=== PATIENT | male | born 1965 | race Caucasian/White ===

== ENCOUNTER 2017-02-24 21:59 | Emergency (ER) | payer OTHER, SELFPAY ==
[2017-02-24] MEDS ORDERED: BABY ASPIRIN 81 MG CHEW PO ONE (22:16)
--- NOTE | 2017-02-24 22:23 | ERPHSYRPT ---
- History of Present Illness Time Seen by Provider: 02/24/17 22:15 Source: patient Exam Limitations: no limitations Patient Subjective Stated Complaint: Pt sts pain in left arm since Friday night. Sts pain is worse with certain positions. Sts that it shoots up between his shoulder blades at times. Denies chest pain. Denies shortness of breath. Sts that sometimes he experiences tingling in the hand when the pain occurs. Sts pain started after working on a heavy garage door Friday. Triage Nursing Assessment: Pt alert, oriented, answers all questions appropriately. Skin pink, warm, dry. Resps non-labored. Pt grimaces with pain upon movement of left arm. clinical research monitor at triage sinus rhythm. Physician History: FOR THE PAST 3 DAYS PT HAS HAD LEFT SHOULDER PAIN RADIATING TO THE MID BACK AND LEFT HAND WORSE WITH UPRIGHT POSITION. PT ALSO C/O A COUGH FOR YEARS. PT DENIES CHEST PAIN, FEVER, NAUSEA, DIAPHORESIS, ABDOMINAL PAIN. Allergies/Adverse Reactions: No Known Drug Allergies Allergy (Unverified 03/17/15 09:58) Hx Tetanus, Diphtheria Vaccination/Date Given: Yes (UNKNOWN) Hx Influenza Vaccination/Date Given: No Hx Pneumococcal Vaccination/Date Given: No Immunizations Up to Date: Yes - Review of Systems Constitutional: No Fever Respiratory: Cough Cardiac: No Chest Pain Abdominal/Gastrointestinal: No Abdominal Pain, No Nausea Musculoskeletal: Back Pain (MID BACK PAIN), Joint Pain (LEFT SHOULDER PAIN) Endocrine: No Excessive Sweating All Other Systems: Reviewed and Negative - Past Medical History Pertinent Past Medical History: No - Past Surgical History Past Surgical History: No - Social History Smoking Status: Current every day smoker How long have you smoked: 35 Exposure to second hand smoke: No Drug Use: none Patient Lives Alone: No - Nursing Vital Signs Nursing Vital Signs: Initial Vital Signs Temperature 97.7 F 02/24/17 22:08 Pulse Rate 84 02/24/17 22:08 Respiratory Rate 20 02/24/17 22:08 Blood Pressure 136/100 02/24/17 22:08 O2 Sat by Pulse Oximetry 99 02/24/17 22:08 Pain Scale Pain Intensity 4 - Physical Exam General Appearance: alert Eye Exam: PERRL/EOMI Ears, Nose, Throat Exam: TMs normal, pharynx normal, moist mucous membranes Neck Exam: normal inspection Respiratory Exam: lungs clear Cardiovascular Exam: normal heart sounds Gastrointestinal/Abdomen Exam: soft, normal bowel sounds Back Exam: normal range of motion Extremity Exam: normal inspection, other (LEFT SHOULDER NON-TENDER BUT MILD PAIN WITH ABDUCTION.), No pedal edema Neurologic Exam: alert, cooperative Skin Exam: warm, dry SpO2 Interpretation: normal SpO2: 99 Oxygen Delivery: Room Air - Course Nursing assessment & vital signs reviewed: Yes EKG Interpreted by Me: RATE (72), Sinus Rhythm, Left Metcalfe Deviation, NORMAL INTERVALS - Radiology Exams Chest X-ray Interpretation: Interpreted by me, No Pneumonia Left Shoulder X-ray Interpretation: Interpreted by me, No Fracture Ordered Tests: Active Orders 24 hr Category Date Time Status Personal Lines Underwriter STAT Care 02/24/17 22:17 Active EKG-ER Only STAT Care 02/24/17 22:16 Active IV Insertion STAT Care 02/24/17 22:16 Active Oxygen-ED Only NASAL CANNULA 2 lpm Care 02/24/17 22:16 Active Pulse Oximetry (ED) STAT Care 02/24/17 22:16 Active CHEST 2 VIEWS (PA AND LAT) Stat Exams 02/24/17 22:16 Taken SHOULDER Stat Exams 02/24/17 Taken AMYLASE Stat Lab 02/24/17 22:33 Completed CBC W DIFF Stat Lab 02/24/17 22:33 Completed CMP Stat Lab 02/24/17 22:33 Completed LIPASE Stat Lab 02/24/17 22:33 Completed MAGNESIUM Stat Lab 02/24/17 22:33 Completed Manual Differential NC Stat Lab 02/24/17 22:33 Completed NT PRO BNP Stat Lab 02/24/17 22:33 Completed TROPONIN Q3H Lab 02/24/17 22:33 Completed TROPONIN Q3H Lab 02/25/17 01:30 Ordered TROPONIN Q3H Lab 02/25/17 04:30 Ordered TROPONIN Q3H Lab 02/25/17 07:30 Ordered TROPONIN Q3H Lab 02/25/17 10:30 Ordered Medication Summary Generic Name Dose Route Start Last Admin Trade Name Freq PRN Reason Stop Dose Admin Sodium Chloride 1,000 mls @ 100 mls/hr 02/24/17 22:30 02/24/17 22:45 Sodium Chloride 0.9% 1000 Ml IV 03/26/17 22:29 100 mls/hr .Q10H ESTRELLA Administration Discontinued Medications Generic Name Dose Route Start Last Admin Trade Name Freq PRN Reason Stop Dose Admin Aspirin 324 mg 02/24/17 22:16 02/24/17 22:44 Baby Aspirin 81 Mg Chew PO 02/24/17 22:17 324 mg STAT ONE Administration Aspirin Confirm 02/24/17 22:42 Baby Aspirin 81 Mg Chew Administered 02/24/17 22:43 Dose 324 mg .ROUTE .STK-MED ONE Lab/Rad Data: Laboratory Result Diagrams 02/24/17 22:33 02/24/17 22:33 Laboratory Results 02/24/17 02/24/17 02/24/17 Range/Units 22:33 22:33 22:33 WBC 8.3 (4.0-10.5) K/mm3 RBC 4.59 (4.1-5.6) M/mm3 Hgb 15.5 (12.5-18.0) gm/dl Hct 46.0 (42-50) % MCV 100.2 H (78-100) fl MCH 33.8 H (26-32) pg MCHC 33.7 (32-36) g/dl RDW 12.4 (11.5-14.0) % Plt Count 131 L (150-450) K/mm3 MPV 11.1 H (6-9.5) fl Sodium 135 L (136-145) mEq/L Potassium 3.9 (3.5-5.1) mEq/L Chloride 100 (98-107) mEq/L Carbon Dioxide 24.8 (21-32) mEq/L Anion Gap 13.6 (5-15) MEQ/L BUN 16 (9-20) mg/dL Creatinine 0.64 (0.55-1.30) mg/dl Estimated GFR > 60 ML/MIN Glucose 103 (70-110) MG/DL Calcium 9.0 (8.5-10.1) mg/dL Magnesium 2.0 (1.8-2.4) mg/dL Total Bilirubin 0.90 (0.2-1.0) mg/dL AST 45 H (15-37) U/L ALT 95 H (12-78) U/L Alkaline Phosphatase 72 (46-116) U/L Troponin I < 0.017 (0.000-0.056) ng/ml NT-Pro-B Natriuret Pep 57 (0-125) pg/ml Serum Total Protein 7.9 (6.4-8.2) gm/dL Albumin 3.8 (3.4-5.0) g/dL Amylase 55 (25-115) U/L Lipase 321 (73-393) U/L - Departure Time of Disposition: 23:51 Departure Disposition: Home Clinical Impression: BURSITIS OF LEFT SHOULDER Condition: Stable Critical Care Time: No Referrals: DOCTOR,NO FAMILY [Primary Care Provider] - Instructions: Bursitis Additional Instructions: FOLLOW UP WITH PRIVATE DOCTOR TOMORROW. WEAR LEFT ARM SLING FOR COMFORT. Prescriptions: Naproxen [Naprosyn] 500 mg PO [id number] PRN #20 tablet PRN Reason: Pain
[2017-02-24] MEDS ORDERED: Sodium Chloride 0.9% 1000 ML 1,000 ML IV SCH (22:30)
[2017-02-24 22:41] LABS: Mean Cell Volume 100.2 fl (78-100); Mean Corpuscular Hemoglobin 33.8 pg (26-32); Mean Platelet Volume 11.1 fl (6-9.5); Platelet Count 131 K/mm3 (150-450); Red Blood Count 4.59 M/mm3 (4.1-5.6); Red Cell Distribution Width 12.4 % (11.5-14.0); White Blood Count 8.3 K/mm3 (4.0-10.5)
[2017-02-24] MEDS ORDERED: BABY ASPIRIN 81 MG CHEW ONE (22:42)
[2017-02-24] MEDS ORDERED: Sodium Chloride 0.9% 1000 ML 1,000 ML ONE (22:42)
[2017-02-24 23:08] LABS: ALBUMIN 3.8 g/dL (3.4-5.0); ALKALINE PHOSPHATASE 72 U/L (46-116); ANION GAP 13.6 MEQ/L (5-15); BLOOD UREA NITROGEN 16 mg/dL (9-20); CHLORIDE 100 mEq/L (98-107); Carbon Dioxide 24.8 mEq/L (21-32); Glucose 103 MG/DL (70-110); LIPASE 321 U/L (73-393); Potassium 3.9 mEq/L (3.5-5.1); SGOT/AST 45 U/L (15-37); SGPT/ALT 95 U/L (12-78); SODIUM 135 mEq/L (136-145); Total Protein 7.9 gm/dL (6.4-8.2)
[2017-02-24] MEDS ORDERED: NORCO 5/325 MG PO ONE (23:52)
[2017-02-25] MEDS ORDERED: NORCO 5/325 MG ONE
[2017-02-25 00:17] VITALS: BP 150/75; PULSE 78; O2SAT 98
[2017-02-25 01:34] LABS: Eosinophil 1 % (0.00-3.0); Platelet Estimate NORMAL (NORMAL); Total Cells Counted 100
--- NOTE | 2017-02-25 08:49 | XRAY ---
Indication: Pain. Comparison: None 3 views of the left shoulder demonstrates mild AC degenerative arthropathy. No other bony, articular, or soft tissue abnormalities.
--- NOTE | 2017-02-25 08:51 | XRAY ---
Indication: Chest pain. Comparison: March 17, 2015. PA/lateral chest again hyperinflated and clear. Heart is not enlarged. Vascularity normal. Bony thorax intact. Impression: Stable nonacute hyperinflated chest.
== END 2017-02-25 00:18 | disposition home or self-care (01) ==
LOC: ED 21:59
DX: M75.52 Bursitis of left shoulder (principal)
CPT/HCPCS: 36000; 36415; 71020; 73030; 80053; 82150; 83690; 83735; 83880; 84484; 85025; 93005; 93041; 96360; 99283; 99284; A9270-GY

== ENCOUNTER 2018-02-19 09:56 | Emergency (ER) | payer OTHER ==
[2018-02-19 10:17] VITALS: BP 156/89; PULSE 73; O2SAT 97
--- NOTE | 2018-02-19 10:18 | ERPHSYRPT ---
- History of Present Illness Time Seen by Provider: 02/19/18 10:05 Source: patient, family Exam Limitations: no limitations Physician History: 52 y/o white male presents with 2 day h/o right rib pain after a severe coughing spell. pt has broken right ribs in the past and it feels like that. pt states he drank 4 beers this morning to deaden the pain. he drink beer daily. he is not on any medication and is not allergic to medication Timing/Duration: day(s) (2) Allergies/Adverse Reactions: No Known Drug Allergies Allergy (Unverified 02/19/18 10:17) Hx Tetanus, Diphtheria Vaccination/Date Given: Yes (UNKNOWN) Hx Influenza Vaccination/Date Given: No Hx Pneumococcal Vaccination/Date Given: No - Past Medical History Pertinent Past Medical History: No - Past Surgical History Past Surgical History: No - Social History Smoking Status: Current every day smoker How long have you smoked: 35 Exposure to second hand smoke: No Drug Use: none Patient Lives Alone: No - Nursing Vital Signs Nursing Vital Signs: Initial Vital Signs Temperature 97.7 F 02/19/18 10:10 Pulse Rate 73 02/19/18 10:10 Respiratory Rate 18 02/19/18 10:10 Blood Pressure 156/89 02/19/18 10:10 O2 Sat by Pulse Oximetry 97 02/19/18 10:10 Pain Scale Pain Intensity 7 - Course Nursing assessment & vital signs reviewed: Yes Ordered Tests: Active Orders 24 hr Category Date Time Status CHEST 2 VIEWS (PA AND LAT) Stat Exams 02/19/18 10:18 Completed Medication Summary Discontinued Medications Generic Name Dose Route Start Last Admin Trade Name [place] PRN Reason Stop Dose Admin Lorazepam 1 mg 02/19/18 10:23 02/19/18 10:41 Ativan 2 Mg/1 Ml Vial IM 02/19/18 10:24 1 mg STAT ONE Administration Lorazepam Confirm 02/19/18 10:26 Ativan 2 Mg/1 Ml Vial Administered 02/19/18 10:27 Dose 2 mg .ROUTE .STK-MED ONE Methylprednisolone Sodium Succinate 125 mg 02/19/18 10:20 02/19/18 10:41 Solu-Medrol 125 Mg IM 02/19/18 10:21 125 mg STAT ONE Administration Methylprednisolone Sodium Succinate Confirm 02/19/18 10:26 Solu-Medrol 125 Mg Administered 02/19/18 10:27 Dose 125 mg .ROUTE .STK-MED ONE Lab/Rad Data: cxr-no acute process; no fx ribs - Progress Progress: improved Air Movement: good Progress Note: 02/19/18 10:53 pt feeling good enough to be outside and smoking. Blood Culture(s) Obtained: No Antibiotics given: No Counseled pt/family regarding: diagnosis, need for follow-up, rad results - Departure Time of Disposition: 10:54 Departure Disposition: Home Clinical Impression: Rib pain on right side Condition: Stable Critical Care Time: No Referrals: DOCTOR,NO FAMILY [Primary Care Provider] - Additional Instructions: follow up with primary doctor for persistent pain. add tylenol for pain. do not consume alcohol while taking your medications Prescriptions: Diazepam [Valium] 2 mg PO Q12H PRN PRN #6 tablet MDD 2 PRN Reason: Muscle Spasms Prednisone 10 mg [Deltasone 10 mg] 10 mg PO BID #6 tablet
[2018-02-19] MEDS ORDERED: solu-MEDROL 125 MG IM ONE (10:20)
[2018-02-19] MEDS ORDERED: Ativan 2 MG/1 ML VIAL IM ONE (10:23)
[2018-02-19] MEDS ORDERED: solu-MEDROL 125 MG ONE (10:26)
[2018-02-19] MEDS ORDERED: Ativan 2 MG/1 ML VIAL ONE (10:26)
--- NOTE | 2018-02-19 10:48 | XRAY ---
Indication: Right-sided pain, cough, and short of breath 3-4 days. Comparison: February 24, 2017. PA/lateral chest again demonstrates normal heart and lungs. Bony thorax intact. No new/acute findings.
== END 2018-02-19 11:06 | disposition home or self-care (01) ==
LOC: ED 09:56
DX: R07.81 Pleurodynia (principal)
CPT/HCPCS: 71046; 96372; 99283; J2060; J2930

== ENCOUNTER 2021-03-19 16:09 | Observation (INO) | payer OTHER ==
--- NOTE | 2021-03-19 18:29 | PCM.HP.ADD ---
Addendum to History & Physical - History & Physical Addendum Addendum to History & Physical: This certifies that the History & Physical in the electronic chart reflects the current health status of the patient. If there are changes in the H&P these changes/exceptions are listed as follows.
[2021-03-19 18:45] LABS: Absolute Neutrophil Ct (ANC) 3.75 (1.4-6.9); BASOPHIL % 1.1 % (0.0-0.4); Basophil (Absolute #) 0.08 (0-0.4); Eosinophil % 2.3 % (0.00-5.0); Eosinophil (Absolute #) 0.16 (0-0.5); Hematocrit 28.4 % (42-50); Lymphocyte (Absolute #) 1.83 (1.0-4.6); Lymphocytes % 26.3 % (24.0-44.0); Mean Corpuscular Hgb Concent. 31.7 g/dl (32-36); Mean Platelet Volume 10.3 fl (7.5-11.0); Monocyte (Absolute #) 1.15 (0.0-1.3); Monocytes % 16.5 % (0.0-12.0); Neutrophil % 53.8 % (36.0-66.0); Platelet Count 102 K/mm3 (150-450); Red Blood Count 2.73 M/mm3 (4.1-5.6); Red Cell Distribution Width 13.8 % (11.5-14.0)
[2021-03-19 19:05] LABS: ALBUMIN 2.9 g/dL (3.5-5.0); ALKALINE PHOSPHATASE 112 U/L (38-126); ANION GAP 11.2 MEQ/L (5-15); BLOOD UREA NITROGEN 6 mg/dL (9-20); CHLORIDE 102 mmol/L (98-107); Calcium 8.1 mg/dL (8.4-10.2); Carbon Dioxide 23 mmol/L (22-30); Creatinine 1 0.65 mg/dL (0.66-1.25); EST GLOMERULAR FILTRATION RATE > 60.0 ML/MIN; Glucose 114 mg/dL (74-106); NT PRO BNP 296 pg/mL (0-900); SGOT/AST 55 U/L (17-59); SGPT/ALT 27 U/L (0-50); SODIUM 134 mmol/L (137-145); Total Protein 6.5 g/dL (6.3-8.2)
[2021-03-19 19:09] LABS: Potassium 2.7 mmol/L (3.5-5.1)
[2021-03-19] MEDS ORDERED: ROCEPHIN 2 Gm-D5w 50ML BAG** 2 G/50 ML IVPB IV ONE (19:36)
[2021-03-19] MEDS: Sodium Chloride 0.9% 1000 ML 1,000 ML IV SCH (19:40)
[2021-03-19] MEDS: Neurontin 100 MG PO SCH (21:16)
[2021-03-19] MEDS: POTASSIUM CHLORIDE 20 mEq IN WATER 100ML 20 MEQ/100 ML BAG IV SCH ×2 (21:16→22:56)
[2021-03-20 00:56] LABS: Appearance CLEAR (CLEAR); Bilirubin NEGATIVE (NEGATIVE); Blood NEGATIVE Ery/ul (0-5); Glucose NEGATIVE (NEGATIVE); Ketones NEGATIVE (NEGATIVE); Leukocyte Esterase NEGATIVE (NEGATIVE); Nitrite NEGATIVE (NEGATIVE); Protein,Urine Dip NEGATIVE (Negative); Specific Gravity 1.013 (1.005-1.025); Urobilinogen 4 mg/dL (0-1); WBC 0-2 /HPF (0-5)
[2021-03-20 05:40] LABS: Hematocrit 27.3 % (42-50); Hemoglobin 8.5 gm/dl (12.5-18.0); Mean Corpuscular Hemoglobin 32.7 pg (26-32); Mean Corpuscular Hgb Concent. 31.1 g/dl (32-36); Mean Platelet Volume 11.3 fl (7.5-11.0); Platelet Count 87 K/mm3 (150-450); Red Cell Distribution Width 13.8 % (11.5-14.0); White Blood Count 6.3 K/mm3 (4.0-10.5)
[2021-03-20 06:02] LABS: ALBUMIN 2.3 g/dL (3.5-5.0); ALKALINE PHOSPHATASE 104 U/L (38-126); ANION GAP 6.1 MEQ/L (5-15); BLOOD UREA NITROGEN 6 mg/dL (9-20); CHLORIDE 104 mmol/L (98-107); Carbon Dioxide 27 mmol/L (22-30); Creatinine 1 0.61 mg/dL (0.66-1.25); EST GLOMERULAR FILTRATION RATE > 60.0 ML/MIN; Glucose 98 mg/dL (74-106); MAGNESIUM 1.9 mg/dL (1.6-2.3); Potassium 3.3 mmol/L (3.5-5.1); SGOT/AST 47 U/L (17-59); SGPT/ALT 23 U/L (0-50); SODIUM 134 mmol/L (137-145); Total Protein 5.6 g/dL (6.3-8.2)
--- NOTE | 2021-03-20 08:03 | PCM.NOTE ---
Date and Time: 03/20/21 0758 Subjective Assessment: still swollen left thigh. labs and ultrasound reviewed. - Review of Systems Constitutional: No Fever, No Chills Eyes: No Symptoms Ears, Nose, & Throat: No Symptoms Respiratory: Short Of Breath, No Cough Cardiac: No Chest Pain, No Edema, No Syncope Abdominal/Gastrointestinal: No Abdominal Pain, No Nausea, No Vomiting, No Diarrhea Genitourinary Symptoms: No Dysuria Musculoskeletal: Other (swollen left thigh), No Back Pain, No Neck Pain Skin: Cellulitis, No Rash Neurological: No Dizziness, No Focal Weakness, No Sensory Changes Psychological: No Symptoms Endocrine: No Symptoms Hematologic/Lymphatic: No Symptoms Immunological/Allergic: No Symptoms Objective Exam General Appearance: no apparent distress, alert Neurologic Exam: alert, oriented x 3, cooperative, normal mood/affect, nml cerebellar function, sensation nml, No motor deficits Skin Exam: normal color, warm, dry Eye Exam: PERRL, EOMI, eyes nml inspection Ears, Nose, Throat Exam: normal ENT inspection, pharynx normal, moist mucous membranes Neck Exam: normal inspection, non-tender, supple, full range of motion Respiratory Exam: normal breath sounds, lungs clear, No respiratory distress Cardiovascular Exam: regular rate/rhythm, normal heart sounds Gastrointestinal/Abdomen Exam: soft, No tenderness, No mass Extremity Exam: normal inspection, normal range of motion, inflammation, limited range of motion, swelling, tenderness (left thigh), No solo's sign Back Exam: normal inspection, normal range of motion, No CVA tenderness, No vertebral tenderness Male Genitalia Exam: deferred Rectal Exam: deferred OBJECTIVE DATA Vital Signs: Vital Signs - 24 hr Temp Pulse Resp BP Pulse Ox 03/20/21 04:00 98.4 F 78 16 103/50 97 03/20/21 00:00 98.6 F 84 18 112/55 98 03/19/21 19:34 85 16 110/58 96 03/19/21 19:25 96 03/19/21 18:41 85 16 110/58 96 Pain Assessment - Last Documented Pain Intensity 2 Intake and Output: Intake & Output 03/17/21 03/18/21 03/19/21 03/20/21 12:59 11:59 11:59 11:59 Intake Total 1079 Balance 1079 Weight 97.4 kg Lab Results: Lab Results-Last 24 Hours 03/19/21 03/19/21 03/19/21 Range/Units 16:30 18:30 18:40 WBC 7.0 (4.0-10.5) K/mm3 RBC 2.73 L (4.1-5.6) M/mm3 Hgb 9.0 L (12.5-18.0) gm/dl Hct 28.4 L (42-50) % MCV 104.0 H (78-100) fl MCH 33.0 H (26-32) pg MCHC 31.7 L (32-36) g/dl RDW 13.8 (11.5-14.0) % Plt Count 102 L (150-450) K/mm3 MPV 10.3 (7.5-11.0) fl Gran % 53.8 (36.0-66.0) % Eos # (Auto) 0.16 (0-0.5) Absolute Lymphs (auto) 1.83 (1.0-4.6) Absolute Monos (auto) 1.15 (0.0-1.3) Lymphocytes % 26.3 (24.0-44.0) % Monocytes % 16.5 H (0.0-12.0) % Eosinophils % 2.3 (0.00-5.0) % Basophils % 1.1 (0.0-0.4) % Absolute Granulocytes 3.75 (1.4-6.9) Basophils # 0.08 (0-0.4) D-Dimer (215-500) ng/mL Sodium 134 L (137-145) mmol/L Potassium 2.7 L* (3.5-5.1) mmol/L Chloride 102 (98-107) mmol/L Carbon Dioxide 23 (22-30) mmol/L Anion Gap 11.2 (5-15) MEQ/L BUN 6 L (9-20) mg/dL Creatinine 0.65 L (0.66-1.25) mg/dL Estimated GFR > 60.0 ML/MIN Glucose 114 H (74-106) mg/dL Calcium 8.1 L (8.4-10.2) mg/dL Magnesium (1.6-2.3) mg/dL Total Bilirubin 3.20 H (0.2-1.3) mg/dL AST 55 (17-59) U/L ALT 27 (0-50) U/L Alkaline Phosphatase 112 (38-126) U/L NT-Pro-B Natriuret Pep 296 (0-900) pg/mL Serum Total Protein 6.5 (6.3-8.2) g/dL Albumin 2.9 L (3.5-5.0) g/dL Urine Color (YELLOW) Urine Appearance (CLEAR) Urine pH (5-6) Ur Specific Wellman (1.005-1.025) Urine Protein (Negative) Urine Ketones (NEGATIVE) Urine Blood (0-5) Henry/ul Urine Nitrite (NEGATIVE) Urine Bilirubin (NEGATIVE) Urine Urobilinogen (0-1) mg/dL Ur Leukocyte Esterase (NEGATIVE) Urine WBC (Auto) (0-5) /HPF U Epithel Cells (Auto) (FEW) /HPF Urine Culture Reflexed (NO) Urine Glucose (NEGATIVE) mg/dL SARS-CoV-2 (PCR) NEGATIVE (NEGATIVE) 03/20/21 03/20/21 03/20/21 Range/Units 00:50 04:20 04:20 WBC 6.3 (4.0-10.5) K/mm3 RBC 2.60 L (4.1-5.6) M/mm3 Hgb 8.5 L (12.5-18.0) gm/dl Hct 27.3 L (42-50) % MCV 105.0 H (78-100) fl MCH 32.7 H (26-32) pg MCHC 31.1 L (32-36) g/dl RDW 13.8 (11.5-14.0) % Plt Count 87 L (150-450) K/mm3 MPV 11.3 H (7.5-11.0) fl Gran % (36.0-66.0) % Eos # (Auto) (0-0.5) Absolute Lymphs (auto) (1.0-4.6) Absolute Monos (auto) (0.0-1.3) Lymphocytes % (24.0-44.0) % Monocytes % (0.0-12.0) % Eosinophils % (0.00-5.0) % Basophils % (0.0-0.4) % Absolute Granulocytes (1.4-6.9) Basophils # (0-0.4) D-Dimer (215-500) ng/mL Sodium 134 L (137-145) mmol/L Potassium 3.3 L D (3.5-5.1) mmol/L Chloride 104 (98-107) mmol/L Carbon Dioxide 27 (22-30) mmol/L Anion Gap 6.1 (5-15) MEQ/L BUN 6 L (9-20) mg/dL Creatinine 0.61 L (0.66-1.25) mg/dL Estimated GFR > 60.0 ML/MIN Glucose 98 (74-106) mg/dL Calcium 8.0 L (8.4-10.2) mg/dL Magnesium 1.9 (1.6-2.3) mg/dL Total Bilirubin 1.80 H (0.2-1.3) mg/dL AST 47 (17-59) U/L ALT 23 (0-50) U/L Alkaline Phosphatase 104 (38-126) U/L NT-Pro-B Natriuret Pep (0-900) pg/mL Serum Total Protein 5.6 L (6.3-8.2) g/dL Albumin 2.3 L (3.5-5.0) g/dL Urine Color YELLOW (YELLOW) Urine Appearance CLEAR (CLEAR) Urine pH 6.0 (5-6) Ur Specific Wellman 1.013 (1.005-1.025) Urine Protein NEGATIVE (Negative) Urine Ketones NEGATIVE (NEGATIVE) Urine Blood NEGATIVE (0-5) Henry/ul Urine Nitrite NEGATIVE (NEGATIVE) Urine Bilirubin NEGATIVE (NEGATIVE) Urine Urobilinogen 4 (0-1) mg/dL Ur Leukocyte Esterase NEGATIVE (NEGATIVE) Urine WBC (Auto) 0-2 (0-5) /HPF U Epithel Cells (Auto) NONE (FEW) /HPF Urine Culture Reflexed NO (NO) Urine Glucose NEGATIVE (NEGATIVE) mg/dL SARS-CoV-2 (PCR) (NEGATIVE) 03/20/21 Range/Units 04:20 WBC (4.0-10.5) K/mm3 RBC (4.1-5.6) M/mm3 Hgb (12.5-18.0) gm/dl Hct (42-50) % MCV (78-100) fl MCH (26-32) pg MCHC (32-36) g/dl RDW (11.5-14.0) % Plt Count (150-450) K/mm3 MPV (7.5-11.0) fl Gran % (36.0-66.0) % Eos # (Auto) (0-0.5) Absolute Lymphs (auto) (1.0-4.6) Absolute Monos (auto) (0.0-1.3) Lymphocytes % (24.0-44.0) % Monocytes % (0.0-12.0) % Eosinophils % (0.00-5.0) % Basophils % (0.0-0.4) % Absolute Granulocytes (1.4-6.9) Basophils # (0-0.4) D-Dimer 4631 H* (215-500) ng/mL Sodium (137-145) mmol/L Potassium (3.5-5.1) mmol/L Chloride (98-107) mmol/L Carbon Dioxide (22-30) mmol/L Anion Gap (5-15) MEQ/L BUN (9-20) mg/dL Creatinine (0.66-1.25) mg/dL Estimated GFR ML/MIN Glucose (74-106) mg/dL Calcium (8.4-10.2) mg/dL Magnesium (1.6-2.3) mg/dL Total Bilirubin (0.2-1.3) mg/dL AST (17-59) U/L ALT (0-50) U/L Alkaline Phosphatase (38-126) U/L NT-Pro-B Natriuret Pep (0-900) pg/mL Serum Total Protein (6.3-8.2) g/dL Albumin (3.5-5.0) g/dL Urine Color (YELLOW) Urine Appearance (CLEAR) Urine pH (5-6) Ur Specific Wellman (1.005-1.025) Urine Protein (Negative) Urine Ketones (NEGATIVE) Urine Blood (0-5) Henry/ul Urine Nitrite (NEGATIVE) Urine Bilirubin (NEGATIVE) Urine Urobilinogen (0-1) mg/dL Ur Leukocyte Esterase (NEGATIVE) Urine WBC (Auto) (0-5) /HPF U Epithel Cells (Auto) (FEW) /HPF Urine Culture Reflexed (NO) Urine Glucose (NEGATIVE) mg/dL SARS-CoV-2 (PCR) (NEGATIVE) Radiology Exams: Radiology Procedures Category Date Time Status CHEST WITH CONTRAST [CT] Routine Exams 03/21/21 01:00 Ordered LOWER EXTREMITY W AND W/O [CT] Routine Exams 03/20/21 Taken LOWER EXTREMITY W AND W/O [CT] Routine Exams 03/20/21 Taken VENOUS BILATERAL EXTREMITY [US] Routine Exams 03/20/21 06:45 Ordered Assessment/Plan (1) Cellulitis and abscess of left lower extremity Current Visit: Yes Status: Acute Assessment & Plan: Chief Complaint Diagnosis CELLULITIS LEFT LEG Allergies Allergy/AdvReac Type Severity Reaction Status Date / Time No Known Drug Allergies Allergy Unverified 02/19/18 10:17 Vital Signs (Last 24 hours) Temp Pulse Resp BP Pulse Ox 03/20/21 04:00 98.4 F 78 16 103/50 97 03/20/21 00:00 98.6 F 84 18 112/55 98 03/19/21 19:34 85 16 110/58 96 03/19/21 19:25 96 03/19/21 18:41 85 16 110/58 96 Home Medications Medication Instructions Recorded Confirmed Last Taken Type Bumetanide 1 mg [Bumex 1 mg] 1 mg PO DAILY 03/19/21 03/19/21 03/19/21 History Gabapentin 100 mg [Neurontin 100 mg PO BID 03/19/21 03/19/21 03/15/21 History 100 MG] Levothyroxine Sodium [Euthyrox] 50 mcg PO DAILY 03/19/21 03/19/21 03/15/21 History Magnesium 250 mg PO EVENING MEAL 03/19/21 03/19/21 03/15/21 History Current Medications Generic Name Dose Route Start Last Admin Trade Name Karanq PRN Reason Stop Dose Admin Bumetanide 1 mg 03/20/21 10:00 Bumetanide 1 Mg Tablet PO 04/19/21 09:59 DAILY ESTRELLA Enoxaparin Sodium 40 mg 03/20/21 10:00 Enoxaparin Sodium 40 Mg/0.4 Ml Syringe SQ 04/19/21 09:59 DAILY ESTRELLA Gabapentin 100 mg 03/19/21 22:00 03/19/21 21:16 Gabapentin 100 Mg Capsule PO 04/18/21 21:59 100 mg BID ESTRELLA Administration Sodium Chloride 1,000 mls @ 50 mls/hr 03/19/21 18:15 03/19/21 19:40 Sodium Chloride 0.9% 1000 Ml IV 04/18/21 18:14 50 mls/hr .Q20H ESTERLLA Administration Ceftriaxone Sodium/Dextrose 2 g in 50 mls @ 100 mls/hr 03/20/21 22:00 Rocephin 2 Gm-D5w 50ml Bag IV 03/23/21 09:59 QPM ESTRELLA Levothyroxine Sodium 50 mcg 03/20/21 10:00 Levothyroxine Sodium 50 Mcg Tablet PO 04/19/21 09:59 DAILY ESTRELLA Magnesium Oxide 200 mg 03/20/21 18:00 Magnesium Oxide 400 Mg Tablet PO 04/19/21 17:59 EVENING MEAL ESTRELLA Discontinued Medications Generic Name Dose Route Start Last Admin Trade Name Freq PRN Reason Stop Dose Admin Ceftriaxone Sodium/Dextrose 2 g in 50 mls @ 100 mls/hr 03/20/21 10:00 03/19/21 19:42 Rocephin 2 Gm-D5w 50ml Bag IV 03/23/21 09:59 100 mls/hr Q24H10 ESTRELLA Administration Ceftriaxone Sodium/Dextrose Confirm 03/19/21 19:36 Rocephin 2 Gm-D5w 50ml Bag Administered 03/19/21 19:37 Dose 2 g in 50 mls @ ud IV .STK-MED ONE Potassium Chloride 20 meq in 100 mls @ 50 mls/hr 03/19/21 22:00 03/19/21 22:56 Potassium Chloride 20 Meq In Water 100ml IV 03/20/21 01:59 50 mls/hr Q2H ESTRELLA Administration Intake & Output (Last 24 hours) 03/17/21 03/18/21 03/19/21 03/20/21 12:59 11:59 11:59 11:59 Intake Total 1079 Balance 1079 Weight 97.4 kg Microbiology Results (Last 24 hours) 03/19/21 18:45 Blood Blood Culture Gram Stain - Pending 03/19/21 18:45 Blood Blood Culture - Pending 03/19/21 18:40 Blood Blood Culture Gram Stain - Pending 03/19/21 18:40 Blood Blood Culture - Pending Laboratory Results (Last 24 hours) 03/20/21 03/20/21 03/20/21 04:20 04:20 04:20 WBC 6.3 RBC 2.60 L Hgb 8.5 L Hct 27.3 L MCV 105.0 H MCH 32.7 H MCHC 31.1 L RDW 13.8 Plt Count 87 L MPV 11.3 H Gran % Eos # (Auto) Absolute Lymphs (auto) Absolute Monos (auto) Lymphocytes % Monocytes % Eosinophils % Basophils % Absolute Granulocytes Basophils # D-Dimer 4631 H* Sodium 134 L Potassium 3.3 L D Chloride 104 Carbon Dioxide 27 Anion Gap 6.1 BUN 6 L Creatinine 0.61 L Estimated GFR > 60.0 Glucose 98 Calcium 8.0 L Magnesium 1.9 Total Bilirubin 1.80 H AST 47 ALT 23 Alkaline Phosphatase 104 NT-Pro-B Natriuret Pep Serum Total Protein 5.6 L Albumin 2.3 L Urine Color Urine Appearance Urine pH Ur Specific Wellman Urine Protein Urine Ketones Urine Blood Urine Nitrite Urine Bilirubin Urine Urobilinogen Ur Leukocyte Esterase Urine WBC (Auto) U Epithel Cells (Auto) Urine Culture Reflexed Urine Glucose SARS-CoV-2 (PCR) 03/20/21 03/19/21 03/19/21 00:50 18:40 18:30 WBC 7.0 RBC 2.73 L Hgb 9.0 L Hct 28.4 L MCV 104.0 H MCH 33.0 H MCHC 31.7 L RDW 13.8 Plt Count 102 L MPV 10.3 Gran % 53.8 Eos # (Auto) 0.16 Absolute Lymphs (auto) 1.83 Absolute Monos (auto) 1.15 Lymphocytes % 26.3 Monocytes % 16.5 H Eosinophils % 2.3 Basophils % 1.1 Absolute Granulocytes 3.75 Basophils # 0.08 D-Dimer Sodium 134 L Potassium 2.7 L* Chloride 102 Carbon Dioxide 23 Anion Gap 11.2 BUN 6 L Creatinine 0.65 L Estimated GFR > 60.0 Glucose 114 H Calcium 8.1 L Magnesium Total Bilirubin 3.20 H AST 55 ALT 27 Alkaline Phosphatase 112 NT-Pro-B Natriuret Pep 296 Serum Total Protein 6.5 Albumin 2.9 L Urine Color YELLOW Urine Appearance CLEAR Urine pH 6.0 Ur Specific Wellman 1.013 Urine Protein NEGATIVE Urine Ketones NEGATIVE Urine Blood NEGATIVE Urine Nitrite NEGATIVE Urine Bilirubin NEGATIVE Urine Urobilinogen 4 Ur Leukocyte Esterase NEGATIVE Urine WBC (Auto) 0-2 U Epithel Cells (Auto) NONE Urine Culture Reflexed NO Urine Glucose NEGATIVE SARS-CoV-2 (PCR) 03/19/21 16:30 WBC RBC Hgb Hct MCV MCH MCHC RDW Plt Count MPV Gran % Eos # (Auto) Absolute Lymphs (auto) Absolute Monos (auto) Lymphocytes % Monocytes % Eosinophils % Basophils % Absolute Granulocytes Basophils # D-Dimer Sodium Potassium Chloride Carbon Dioxide Anion Gap BUN Creatinine Estimated GFR Glucose Calcium Magnesium Total Bilirubin AST ALT Alkaline Phosphatase NT-Pro-B Natriuret Pep Serum Total Protein Albumin Urine Color Urine Appearance Urine pH Ur Specific Wellman Urine Protein Urine Ketones Urine Blood Urine Nitrite Urine Bilirubin Urine Urobilinogen Ur Leukocyte Esterase Urine WBC (Auto) U Epithel Cells (Auto) Urine Culture Reflexed Urine Glucose SARS-CoV-2 (PCR) NEGATIVE Orders (Last 24 hours) Category Date Time Status Up Ad Zahra TOLERATED Activity 03/19/21 18:[address] in Observation ROUTINE Care 03/19/21 18:01 Active Heart-Healthy Diet Diet 03/19/21 Dinner Active House Regular Diet Diet 03/20/21 Dinner Active NPO Diet 03/20/21 21:00 Active CHEST WITH CONTRAST [CT] Routine Exams 03/21/21 01:00 Ordered LOWER EXTREMITY W AND W/O [CT] Routine Exams 03/20/21 Taken LOWER EXTREMITY W AND W/O [CT] Routine Exams 03/20/21 Taken VENOUS BILATERAL EXTREMITY [US] Routine Exams 03/20/21 06:45 Ordered BLOOD CULTURE Stat Lab 03/19/21 18:45 Received CBC Routine Lab 03/20/21 04:20 Completed CBC W DIFF Stat Lab 03/19/21 18:40 Completed CMP Routine Lab 03/20/21 04:20 Completed CMP Stat Lab 03/19/21 18:30 Completed D-DIMER QUANTITATIVE Routine Lab 03/20/21 04:20 Completed MAGNESIUM Routine Lab 03/20/21 04:20 Completed NT PRO BNP Stat Lab 03/19/21 18:30 Completed UA W/RFX UR CULTURE Stat Lab 03/20/21 00:50 Completed Bumetanide 1 mg [Bumex 1 mg] Med 03/20/21 10:00 Active 1 mg PO DAILY Ceftriaxone 2 GM/50 ML PREMIX* [ROCEPHIN 2 Gm-D5w 50ML Med 03/20/21 10:00 Discontinued BAG] 2 g in 50 ml IV Q24H10 Ceftriaxone 2 GM/50 ML PREMIX* [ROCEPHIN 2 Gm-D5w 50ML Med 03/20/21 22:00 Active BAG] 2 g in 50 ml IV QPM Ceftriaxone 2 GM/50 ML PREMIX* [ROCEPHIN 2 Gm-D5w 50ML Med 03/19/21 19:36 Discontinued BAG] 2 g in 50 ml IV UD Enoxaparin Sodium [Enoxaparin Sodium] Med 03/20/21 10:00 Active 40 mg SQ DAILY Gabapentin 100 mg [Neurontin 100 MG] Med 03/19/21 22:00 Active 100 mg PO BID Levothyroxine Sodium 50 Mcg [Synthroid 50 Mcg] Med 03/20/21 10:00 Active 50 mcg PO DAILY Magnesium Oxide 400 mg [Mag-Ox 400] Med 03/20/21 18:00 Active 200 mg PO EVENING MEAL NaCl 0.9% 1000 ml [Sodium Chloride 0.9% 1000 ML] 1,000 Med 03/19/21 18:15 Active ml IV 50 mls/hr Potassium Chloride 20Meq/100Ml [POTASSIUM CHLORIDE 20 Med 03/19/21 22:00 Discontinued mEq IN WATER 100ML] 20 meq in 100 ml IV Q2H Oxygen Nasal Cannula 2 lpm RT 03/19/21 18:01 Active Pulse Oximetry ROUTINE RT 03/19/21 19:47 Active Patient Care Notes (Last 24 hours) 03/19/21 23:11 Nursing Note by Jessa Milton Critical potassium called to Dr. Pyle. Home meds addressed. notified pt may need home meds clarified again at discharge since some meds were changed last week prior to admission. Orders entered. Code(s): L03.116 - CELLULITIS OF LEFT LOWER LIMB; L02.416 - CUTANEOUS ABSCESS OF LEFT LOWER LIMB (2) Cellulitis and abscess of right lower extremity Current Visit: Yes Status: Acute Assessment & Plan: Last Vital Signs Temp 98.4 F 03/20/21 04:00 Pulse 78 03/20/21 04:00 Resp 16 03/20/21 04:00 BP 103/50 03/20/21 04:00 Pulse Ox 97 03/20/21 04:00 Allergies No Known Drug Allergies Allergy (Unverified 02/19/18 10:17) Active Medications Bumetanide (Bumetanide 1 Mg Tablet) 1 mg PO DAILY ESTRELLA Stop: 04/19/21 09:59 Enoxaparin Sodium (Enoxaparin Sodium 40 Mg/0.4 Ml Syringe) 40 mg SQ DAILY ESTRELLA Stop: 04/19/21 09:59 Gabapentin (Gabapentin 100 Mg Capsule) 100 mg PO BID ESTRELLA Stop: 04/18/21 21:59 Last Admin: 03/19/21 21:16 Dose: 100 mg Sodium Chloride (Sodium Chloride 0.9% 1000 Ml) 1,000 mls @ 50 mls/hr IV .Q20H ESTRELLA Stop: 04/18/21 18:14 Last Admin: 03/19/21 19:40 Dose: 50 mls/hr Ceftriaxone Sodium/Dextrose (Rocephin 2 Gm-D5w 50ml Bag) 2 g in 50 mls @ 100 mls/hr IV QPM ESTRELLA Stop: 03/23/21 09:59 Levothyroxine Sodium (Levothyroxine Sodium 50 Mcg Tablet) 50 mcg PO DAILY ESTRELLA Stop: 04/19/21 09:59 Magnesium Oxide (Magnesium Oxide 400 Mg Tablet) 200 mg PO EVENING MEAL ESTRELLA Stop: 04/19/21 17:59 Intake & Output 03/19/21 03/20/21 11:59 11:59 Intake Total 1079 Balance 1079 Weight 97.4 kg Orders 03/19/21 Dinner Heart-Healthy Diet 03/19/21 18:01 Place in Observation ROUTINE Oxygen Nasal Cannula 2 lpm 03/19/21 18:04 Up Ad Zahra TOLERATED 03/19/21 18:15 NaCl 0.9% 1000 ml [Sodium Chloride 0.9% 1000 ML] 1,000 ml IV 50 mls/hr 03/19/21 18:45 BLOOD CULTURE Stat 03/19/21 19:47 Pulse Oximetry ROUTINE 03/19/21 22:00 Gabapentin 100 mg [Neurontin 100 MG] 100 mg PO BID 03/20/21 LOWER EXTREMITY W AND W/O [CT] Routine LOWER EXTREMITY W AND W/O [CT] Routine 03/20/21 06:45 VENOUS BILATERAL EXTREMITY [US] Routine 03/20/21 10:00 Bumetanide 1 mg [Bumex 1 mg] 1 mg PO DAILY Enoxaparin Sodium [Enoxaparin Sodium] 40 mg SQ DAILY Levothyroxine Sodium 50 Mcg [Synthroid 50 Mcg] 50 mcg PO DAILY 03/20/21 Dinner House Regular Diet 03/20/21 18:00 Magnesium Oxide 400 mg [Mag-Ox 400] 200 mg PO EVENING MEAL 03/20/21 21:00 NPO 03/20/21 22:00 Ceftriaxone 2 GM/50 ML PREMIX* [ROCEPHIN 2 Gm-D5w 50ML BAG] 2 g in 50 ml IV QPM 03/21/21 01:00 CHEST WITH CONTRAST [CT] Routine Lab Tests 03/19/21 03/19/21 03/19/21 16:30 18:30 18:40 WBC 7.0 RBC 2.73 L Hgb 9.0 L Hct 28.4 L MCV 104.0 H MCH 33.0 H MCHC 31.7 L RDW 13.8 Plt Count 102 L MPV 10.3 Gran % 53.8 Eos # (Auto) 0.16 Absolute Lymphs (auto) 1.83 Absolute Monos (auto) 1.15 Lymphocytes % 26.3 Monocytes % 16.5 H Eosinophils % 2.3 Basophils % 1.1 Absolute Granulocytes 3.75 Basophils # 0.08 D-Dimer Sodium 134 L Potassium 2.7 L* Chloride 102 Carbon Dioxide 23 Anion Gap 11.2 BUN 6 L Creatinine 0.65 L Estimated GFR > 60.0 Glucose 114 H Calcium 8.1 L Magnesium Total Bilirubin 3.20 H AST 55 ALT 27 Alkaline Phosphatase 112 NT-Pro-B Natriuret Pep 296 Serum Total Protein 6.5 Albumin 2.9 L Urine Color Urine Appearance Urine pH Ur Specific Wellman Urine Protein Urine Ketones Urine Blood Urine Nitrite Urine Bilirubin Urine Urobilinogen Ur Leukocyte Esterase Urine WBC (Auto) U Epithel Cells (Auto) Urine Culture Reflexed Urine Glucose SARS-CoV-2 (PCR) NEGATIVE 03/20/21 03/20/21 03/20/21 00:50 04:20 04:20 WBC 6.3 RBC 2.60 L Hgb 8.5 L Hct 27.3 L MCV 105.0 H MCH 32.7 H MCHC 31.1 L RDW 13.8 Plt Count 87 L MPV 11.3 H Gran % Eos # (Auto) Absolute Lymphs (auto) Absolute Monos (auto) Lymphocytes % Monocytes % Eosinophils % Basophils % Absolute Granulocytes Basophils # D-Dimer Sodium 134 L Potassium 3.3 L D Chloride 104 Carbon Dioxide 27 Anion Gap 6.1 BUN 6 L Creatinine 0.61 L Estimated GFR > 60.0 Glucose 98 Calcium 8.0 L Magnesium 1.9 Total Bilirubin 1.80 H AST 47 ALT 23 Alkaline Phosphatase 104 NT-Pro-B Natriuret Pep Serum Total Protein 5.6 L Albumin 2.3 L Urine Color YELLOW Urine Appearance CLEAR Urine pH 6.0 Ur Specific Wellman 1.013 Urine Protein NEGATIVE Urine Ketones NEGATIVE Urine Blood NEGATIVE Urine Nitrite NEGATIVE Urine Bilirubin NEGATIVE Urine Urobilinogen 4 Ur Leukocyte Esterase NEGATIVE Urine WBC (Auto) 0-2 U Epithel Cells (Auto) NONE Urine Culture Reflexed NO Urine Glucose NEGATIVE SARS-CoV-2 (PCR) 03/20/21 04:20 WBC RBC Hgb Hct MCV MCH MCHC RDW Plt Count MPV Gran % Eos # (Auto) Absolute Lymphs (auto) Absolute Monos (auto) Lymphocytes % Monocytes % Eosinophils % Basophils % Absolute Granulocytes Basophils # D-Dimer 4631 H* Sodium Potassium Chloride Carbon Dioxide Anion Gap BUN Creatinine Estimated GFR Glucose Calcium Magnesium Total Bilirubin AST ALT Alkaline Phosphatase NT-Pro-B Natriuret Pep Serum Total Protein Albumin Urine Color Urine Appearance Urine pH Ur Specific Wellman Urine Protein Urine Ketones Urine Blood Urine Nitrite Urine Bilirubin Urine Urobilinogen Ur Leukocyte Esterase Urine WBC (Auto) U Epithel Cells (Auto) Urine Culture Reflexed Urine Glucose SARS-CoV-2 (PCR) Code(s): L03.115 - CELLULITIS OF RIGHT LOWER LIMB; L02.415 - CUTANEOUS ABSCESS OF RIGHT LOWER LIMB (3) Hypokalemia Current Visit: No Status: Acute Code(s): E87.6 - HYPOKALEMIA (4) D-dimer, elevated Current Visit: Yes Status: Acute Code(s): R79.89 - OTHER SPECIFIED ABNORMAL FINDINGS OF BLOOD CHEMISTRY
[2021-03-20] MEDS: Neurontin 100 MG PO SCH (08:12)
--- NOTE | 2021-03-20 09:45 | XRAY ---
Indication: Bilateral lower leg pain and swelling. Multiple contiguous axial images obtained through the left lower leg including knee/ankle joint prior to and following 100 cc Isovue 370 contrast. Sagittal and coronal reformatted images obtained. Comparison: None Noncontrasted images are negative for soft tissue/arteriosclerotic calcifications. Postcontrast images demonstrates normal opacification of the major arteries/veins without critical stenosis, obstruction, or AV malformation. There is moderate diffuse subcutaneous soft tissue swelling/edema. No suspicious solid/cystic soft tissue mass. Posterior knee demonstrates tiny fabella. Small suprapatella spur. Calcaneus demonstrates tiny heel spurs. No acute fracture, dislocation, or suspicious bony lesions. Impression: 1. Diffuse subcutaneous soft tissue swelling/edema. 2. Incidental degenerative spurring of the patella and calcaneus. 3. Remaining CT left lower leg with and without contrast exam is negative.
--- NOTE | 2021-03-20 09:48 | XRAY ---
Indication: Bilateral lower leg pain and swelling. Multiple contiguous axial images obtained through the right lower leg including knee/ankle joint prior to and following 100 cc Isovue 370 contrast. Sagittal and coronal reformatted images obtained. Comparison: None Noncontrasted images are negative for soft tissue/arteriosclerotic calcifications. Postcontrast images demonstrates normal opacification of the major arteries/veins without critical stenosis, obstruction, or AV malformation. There is moderate diffuse subcutaneous soft tissue swelling/edema. No suspicious solid/cystic soft tissue mass. Posterior knee demonstrates small fabella. Small suprapatella spur. Calcaneus demonstrates tiny heel spurs. No acute fracture, dislocation, or suspicious bony lesions. Impression: 1. Diffuse subcutaneous soft tissue swelling/edema. 2. Incidental degenerative spurring of the patella and calcaneus. 3. Remaining CT right lower leg with and without contrast exam is negative.
[2021-03-20] MEDS ORDERED: ROCEPHIN 2 Gm-D5w 50ML BAG** 2 G/50 ML IVPB IV SCH ×2 (10:00→22:00)
[2021-03-20] MEDS ORDERED: BUMEX 1 MG PO SCH (10:00)
[2021-03-20] MEDS ORDERED: SYNTHROID 50 MCG PO SCH (10:00)
[2021-03-20] MEDS ORDERED: ENOXAPARIN SODIUM SQ SCH (10:00)
--- NOTE | 2021-03-20 11:01 | XRAY ---
Indication: Bilateral lower extremity swelling. Elevated d-dimer. Two-dimensional sonogram and color Doppler imaging of the major venous vessels of the left and right leg performed. Comparison: March 15, 2021. Again no thrombus seen in the examined deep venous vessels of the left and right leg including greater saphenous vein. Veins demonstrate normal compressibility. Venous waveforms are normal with and without augmentation. Impression: Left and right legs continue to be negative for DVT.
[2021-03-20] MEDS ORDERED: ROCEPHIN 1 Gm-D5w 50 ml Bag** 1 G/50 ML IVPB IV SCH (16:00)
[2021-03-20] MEDS ORDERED: ROCEPHIN 1 Gm-D5w 50 ml Bag** 1 G/50 ML IVPB IV ONE (17:00)
[2021-03-20] MEDS ORDERED: Neurontin 100 MG PO SCH (17:00)
[2021-03-20] MEDS ORDERED: MAGNESIUM 250 MG PO SCH (18:00)
[2021-03-20] MEDS ORDERED: MAG-OX 400 PO SCH (18:00)
[2021-03-20] MEDS: Sodium Chloride 0.9% 1000 ML 1,000 ML IV SCH (21:29)
[2021-03-21] MEDS ORDERED: ROCEPHIN 1 Gm-D5w 50 ml Bag** 1 G/50 ML IVPB IV SCH ×3 (04:00)
--- NOTE | 2021-03-21 09:10 | XRAY ---
Indication: Cough. Elevated d-dimer. Multiple contiguous axial images obtained through the chest using 100 cc Isovue 370 contrast and PE protocol. Comparison: None Pulmonary embolus evaluation due to poor opacification of the pulmonary arteries. No obvious central pulmonary embolus. Heart is not enlarged. Aorta is normal in course and caliber. Small paratracheal calcified node. No pathologic mediastinal/hilar lymphadenopathy. Significant distal paraesophageal varices. Lungs are inflated and clear. Bony thorax intact with minimal degenerative changes throughout the spine and old right rib fractures. Limited upper abdomen demonstrates mild cirrhotic liver, 14 cm splenomegaly, splenorenal varices, and incompletely visualized moderate ascites. Impression: 1. Pulmonary embolus evaluation limited due to poor contrast opacification. No obvious central pulmonary embolus or acute cardiopulmonary abnormalities. 2. Cirrhotic liver, splenomegaly, paraesophageal varices, splenorenal varices, and ascites. Comment: Preliminary interpretation made by C. No critical discrepancy.
--- NOTE | 2021-03-21 21:41 | PCM.DS ---
Discharge Summary Date of Admission: 03/19/21 16:12 Admitting Physician: DAMION VALENCIA Primary Care Provider: DAMION VALENCIA Allergies Allergies No Known Drug Allergies Allergy (Unverified 02/19/18 10:17) Hospital Summary - Hospital Course Hospital Course: Chief Complaint Diagnosis CELLULITIS LEFT LEG Allergies Allergy/AdvReac Type Severity Reaction Status Date / Time No Known Drug Allergies Allergy Unverified 02/19/18 10:17 Vital Signs (Last 24 hours) Temp Pulse Resp BP Pulse Ox 03/21/21 07:35 98.5 F 75 17 135/59 96 03/21/21 03:50 98.3 F 72 22 114/56 96 03/21/21 01:00 98.4 F 80 22 108/80 96 Home Medications Medication Instructions Recorded Confirmed Last Taken Type Bumetanide 1 mg [Bumex 1 mg] 1 mg PO DAILY 03/19/21 03/19/21 03/19/21 History Gabapentin 100 mg [Neurontin 100 mg PO BID 03/19/21 03/19/21 03/15/21 History 100 MG] Levothyroxine Sodium [Euthyrox] 50 mcg PO DAILY 03/19/21 03/19/21 03/15/21 History Magnesium 250 mg PO EVENING MEAL 03/19/21 03/19/21 03/15/21 History Levofloxacin [Levaquin] 500 mg PO DAILY 10 Days #10 tablet 03/20/21 Unknown Rx Current Medications Discontinued Medications Generic Name Dose Route Start Last Admin Trade Name Freq PRN Reason Stop Dose Admin Bumetanide 1 mg 03/20/21 10:00 03/20/21 07:58 Bumetanide 1 Mg Tablet PO 04/19/21 09:59 1 mg DAILY ESTRELLA Administration Enoxaparin Sodium 40 mg 03/20/21 10:00 03/20/21 08:12 Enoxaparin Sodium 40 Mg/0.4 Ml Syringe SQ 04/19/21 09:59 40 mg DAILY ESTRELLA Administration Gabapentin 100 mg 03/19/21 22:00 03/20/21 08:12 Gabapentin 100 Mg Capsule PO 04/18/21 21:59 100 mg BID ESTRELLA Administration Gabapentin 100 mg 03/20/21 17:00 03/20/21 16:42 Gabapentin 100 Mg Capsule PO 04/18/21 21:59 100 mg 1000,1700 ESTRELLA Administration Sodium Chloride 1,000 mls @ 50 mls/hr 03/19/21 18:15 03/20/21 21:29 Sodium Chloride 0.9% 1000 Ml IV 04/18/21 18:14 50 mls/hr .Q20H ESTRELLA Administration Ceftriaxone Sodium/Dextrose 2 g in 50 mls @ 100 mls/hr 03/20/21 10:00 03/19/21 19:42 Rocephin 2 Gm-D5w 50ml Bag IV 03/23/21 09:59 100 mls/hr Q24H10 ESTRELLA Administration Ceftriaxone Sodium/Dextrose Confirm 03/19/21 19:36 Rocephin 2 Gm-D5w 50ml Bag Administered 03/19/21 19:37 Dose 2 g in 50 mls @ ud IV .STK-MED ONE Potassium Chloride 20 meq in 100 mls @ 50 mls/hr 03/19/21 22:00 03/19/21 22:56 Potassium Chloride 20 Meq In Water 100ml IV 03/20/21 01:59 50 mls/hr Q2H ESTRELLA Administration Ceftriaxone Sodium/Dextrose 2 g in 50 mls @ 100 mls/hr 03/20/21 22:00 Rocephin 2 Gm-D5w 50ml Bag IV 03/23/21 09:59 QPM ESTRELLA Ceftriaxone Sodium/Dextrose 1 g in 50 mls @ 100 mls/hr 03/20/21 16:00 Rocephin 1 Gm-D5w 50 Ml Bag IV 03/20/21 16:30 1XONLY ESTRELLA Ceftriaxone Sodium/Dextrose 1 g in 50 mls @ 100 mls/hr 03/21/21 04:00 Rocephin 1 Gm-D5w 50 Ml Bag IV 03/22/21 03:59 1XONLY ESTRELLA Ceftriaxone Sodium/Dextrose 1 g in 50 mls @ 100 mls/hr 03/21/21 04:00 Rocephin 1 Gm-D5w 50 Ml Bag IV 03/21/21 05:00 1XONLY ESTRELLA Ceftriaxone Sodium/Dextrose 1 g in 50 mls @ 100 mls/hr 03/20/21 17:00 03/20/21 16:42 Rocephin 1 Gm-D5w 50 Ml Bag IV 03/20/21 17:29 100 mls/hr ONCE ONE Administration Ceftriaxone Sodium/Dextrose 1 g in 50 mls @ 100 mls/hr 03/21/21 04:00 1 04:28 Rocephin 1 Gm-D5w 50 Ml Bag IV 03/22/21 03:59 100 mls/hr Q24H ESTRELLA Administration Levothyroxine Sodium 50 mcg 03/20/21 10:00 03/20/21 08:12 Levothyroxine Sodium 50 Mcg Tablet PO 04/19/21 09:59 50 mcg DAILY ESTRELLA Administration Magnesium Oxide 200 mg 03/20/21 18:00 03/20/21 16:29 Magnesium Oxide 400 Mg Tablet PO 04/19/21 17:59 200 mg EVENING MEAL ESTRELLA Administration Intake & Output (Last 24 hours) 03/19/21 03/20/21 03/21/21 03/22/21 11:59 11:59 11:59 11:59 Intake Total 1319 2334 Balance 1319 2334 Weight 97.4 kg Microbiology Results (Last 24 hours) 03/19/21 18:45 Blood Blood Culture Gram Stain - Pending 03/19/21 18:45 Blood Blood Culture - Preliminary NO GROWTH TO DATE 03/19/21 18:40 Blood Blood Culture Gram Stain - Pending 03/19/21 18:40 Blood Blood Culture - Preliminary NO GROWTH TO DATE Orders (Last 24 hours) Category Date Time Status NPO Diet 03/20/21 21:00 Completed Discharge Routine Discharge 03/21/21 06:00 Ordered CHEST WITH CONTRAST [CT] Routine Exams 03/21/21 04:13 Completed Ceftriaxone 1 GM/50 ML PREMIX* [ROCEPHIN 1 Gm-D5w 50 ml Med 03/21/21 04:00 Discontinued Bag] 1 g in 50 ml IV 1XONLY Ceftriaxone 1 GM/50 ML PREMIX* [ROCEPHIN 1 Gm-D5w 50 ml Med 03/21/21 04:00 Discontinued Bag] 1 g in 50 ml IV 1XONLY Ceftriaxone 1 GM/50 ML PREMIX* [ROCEPHIN 1 Gm-D5w 50 ml Med 03/21/21 04:00 Discontinued Bag] 1 g in 50 ml IV Q24H Ceftriaxone 2 GM/50 ML PREMIX* [ROCEPHIN 2 Gm-D5w 50ML Med 03/20/21 22:00 Discontinued BAG] 2 g in 50 ml IV QPM - Vitals & Intake/Output Vital Signs: Vital Signs Temperature 98.5 F 03/21/21 07:35 Pulse Rate 75 03/21/21 07:35 Respiratory Rate 17 03/21/21 07:35 Blood Pressure 135/59 03/21/21 07:35 O2 Sat by Pulse Oximetry 96 03/21/21 07:35 Intake & Output: Intake & Output 03/19/21 03/20/21 03/21/21 03/22/21 11:59 11:59 11:59 11:59 Intake Total 1319 2334 Balance 1319 2334 Weight 97.4 kg - Lab Result Diagrams: 03/20/21 04:20 03/20/21 04:20 Micro Results-Entire Visit: Microbiology 03/19/21 18:45 Blood Culture - Preliminary Blood NO GROWTH TO DATE 03/19/21 18:40 Blood Culture - Preliminary Blood NO GROWTH TO DATE - Radiology Exams Ordered Rad Exams-Entire Visit: Radiology Procedures Category Date Time Status CHEST WITH CONTRAST [CT] Routine Exams 03/21/21 04:13 Completed LOWER EXTREMITY W AND W/O [CT] Routine Exams 03/20/21 Completed LOWER EXTREMITY W AND W/O [CT] Routine Exams 03/20/21 Completed VENOUS BILATERAL EXTREMITY [US] Routine Exams 03/20/21 06:45 Completed - Procedures and Test Procedures and Tests throughout Hospitalization: Therapy Orders & Screens 03/19/21 18:01 Oxygen Nasal Cannula 2 lpm Comment: Discharge Exam General Appearance: no apparent distress, alert Neurologic Exam: alert, oriented x 3, cooperative, normal mood/affect, nml cerebellar function, sensation nml, No motor deficits Eye Exam: PERRL, EOMI, eyes nml inspection Ears, Nose, Throat Exam: normal ENT inspection, pharynx normal, moist mucous membranes Neck Exam: normal inspection, non-tender, supple, full range of motion Respiratory Exam: normal breath sounds, lungs clear, No respiratory distress Cardiovascular Exam: regular rate/rhythm, normal heart sounds Gastrointestinal/Abdomen Exam: soft, No tenderness, No mass Male Genitalia Exam: deferred Rectal Exam: deferred Back Exam: normal inspection, normal range of motion, No CVA tenderness, No vertebral tenderness Extremity Exam: normal inspection, normal range of motion Skin Exam: normal color, warm, dry Final Diagnosis/Problem List - Final Discharge Diagnosis/Problem (1) Cellulitis and abscess of left lower extremity Status: Acute Priority: High Assessment & Plan: Last Vital Signs Temp 98.5 F 03/21/21 07:35 Pulse 75 03/21/21 07:35 Resp 17 03/21/21 07:35 BP 135/59 03/21/21 07:35 Pulse Ox 96 03/21/21 07:35 Allergies No Known Drug Allergies Allergy (Unverified 02/19/18 10:17) Intake & Output 03/21/21 03/22/21 11:59 11:59 Intake Total 2334 Balance 2334 Orders 03/21/21 06:00 Discharge Routine Microbiology 03/19/21 18:45 Blood Blood Culture - Preliminary NO GROWTH TO DATE 03/19/21 18:40 Blood Blood Culture - Preliminary NO GROWTH TO DATE Code(s): L03.116 - CELLULITIS OF LEFT LOWER LIMB; L02.416 - CUTANEOUS ABSCESS OF LEFT LOWER LIMB (2) Cellulitis and abscess of right lower extremity Status: Acute Code(s): L03.115 - CELLULITIS OF RIGHT LOWER LIMB; L02.415 - CUTANEOUS ABSCESS OF RIGHT LOWER LIMB (3) Hypokalemia Status: Acute Code(s): E87.6 - HYPOKALEMIA (4) D-dimer, elevated Status: Acute Code(s): R79.89 - OTHER SPECIFIED ABNORMAL FINDINGS OF BLOOD CHEMISTRY - Discharge Discharge Date: 03/21/21 Disposition: Home, Self-Care Condition: Stable Prescriptions: New Levofloxacin [Levaquin] 500 mg PO DAILY 10 Days #10 tablet Continue Magnesium 250 mg PO EVENING MEAL Levothyroxine Sodium [Euthyrox] 50 mcg PO DAILY Bumetanide 1 mg [Bumex 1 mg] 1 mg PO DAILY Gabapentin 100 mg [Neurontin 100 MG] 100 mg PO BID Instructions: Cellulitis (Skin Infection), Adult (DC) Follow up with: DAMION VALENCIA MD [Primary Care Provider] - 1 Week
== END 2021-03-21 07:30 | disposition home or self-care (01) ==
LOC: MED SURG 16:12
PROVIDERS: ADMIT General Practice; ATTEND General Practice
DX: L03.116 Cellulitis of left lower limb (principal); L03.115 Cellulitis of right lower limb; E87.6 Hypokalemia; R79.89 Other specified abnormal findings of blood chemistry; Z79.899 Other long term (current) drug therapy; Z20.828 Contact with and (suspected) exposure to other viral communicable diseases
CPT/HCPCS: 36415; 71260; 73702; 80053; 81001; 83735; 83880; 85025; 85027; 85379; 87040; 93268; 93970; 94760; G0378; U0003; J0696; J1650; J3480; A9270-GY

== ENCOUNTER 2022-04-05 10:11 | Observation (INO) | payer OTHER ==
[2022-04-05] MEDS ORDERED: Sodium Chloride 0.9% 1000 ML 1,000 ML IV SCH (10:45)
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
[2022-04-05 11:01] LABS: Absolute Neutrophil Ct (ANC) 3.31 x10^3/uL (1.4-6.9); Basophil (Absolute #) 0.07 x10^3/uL (0-0.4); Eosinophil % 5.5 % (0.00-5.0); Eosinophil (Absolute #) 0.32 x10^3/uL (0-0.5); Hematocrit 35.4 % (42-50); Hemoglobin 11.3 g/dL (12.5-18.0); Lymphocyte (Absolute #) 1.02 x10^3/uL (1.0-4.6); Lymphocytes % 17.4 % (24.0-44.0); Mean Cell Volume 94.1 fL (78-100); Mean Corpuscular Hemoglobin 30.1 pg (26-32); Mean Corpuscular Hgb Concent. 31.9 g/dL (32-36); Mean Platelet Volume 11.6 fL (7.5-11.0); Monocyte (Absolute #) 1.12 x10^3/uL (0.0-1.3); Monocytes % 19.1 % (0.0-12.0); Neutrophil % 56.5 % (36.0-66.0); Platelet Count 98 x10^3/uL (150-450); Red Blood Count 3.76 x10^6/uL (4.1-5.6); Red Cell Distribution Width 17.2 % (11.5-14.0); White Blood Count 5.9 x10^3/uL (4.0-10.5)
--- NOTE | 2022-04-05 11:03 | XRAY ---
Indication: Confusion. Poor historian. Blood thinner therapy. Multiple contiguous axial images obtained through the head without contrast. Comparison: None Age-appropriate global atrophy and minimal periventricular degenerative micro-ischemia bilaterally. No acute intracranial hemorrhage, abnormal extra-axial fluid collection, or mass effect. Fourth ventricle is midline without hydrocephalus. Luo-white matter differentiation preserved. Bony calvarium intact. Visualized paranasal sinuses and mastoid air cells are clear. Impression: Atrophy and degenerative micro-ischemia within normal limits for patient age. No acute intracranial abnormalities.
[2022-04-05 11:15] LABS: ACETAMINOPHEN < 10 ug/ml (10-30); ETHYL ALCOHOL < 10 mg/dL (0-10); SALICYLATE < 1.0 mg/dL (2-20)
[2022-04-05] MEDS ORDERED: Sodium Chloride 0.9% 1000 ML 1,000 ML ONE (11:18)
[2022-04-05] MEDS ORDERED: K-LYTE PO ONE (11:21)
[2022-04-05] MEDS ORDERED: POTASSIUM CHLORIDE 20 mEq IN WATER 100ML 20 MEQ/100 ML BAG IV ONE (11:21)
[2022-04-05] MEDS ORDERED: POTASSIUM CHLORIDE 20 mEq IN WATER 100ML 100 ML IV ONE (11:30)
[2022-04-05 11:44] LABS: ALBUMIN 3.6 g/dL (3.5-5.0); ALKALINE PHOSPHATASE 139 U/L (38-126); ANION GAP 11.7 MEQ/L (5-15); BLOOD UREA NITROGEN 10 mg/dL (9-20); CHLORIDE 108 mmol/L (98-107); Calcium 8.7 mg/dL (8.4-10.2); Carbon Dioxide 23 mmol/L (22-30); Creatinine 1 0.65 mg/dL (0.66-1.25); EST GLOMERULAR FILTRATION RATE > 60.0 ML/MIN; Glucose 127 mg/dL (74-106); SGOT/AST 103 U/L (17-59); SGPT/ALT 53 U/L (0-50); SODIUM 139 mmol/L (137-145); T4 (Thyroxine) 6.97 ug/dL (5.53-10.96)
[2022-04-05] MEDS ORDERED: K-LYTE ONE (12:31)
[2022-04-05 13:07] LABS: Slide Review 1 YES
[2022-04-05 16:12] LABS: INFLUENZA A NEGATIVE (NEGATIVE); INFLUENZA B NEGATIVE (NEGATIVE); RESPIRATORY SYNCTIAL VIRUS NEGATIVE (Negative); SARS-CoV-2 Xpert Express NEGATIVE (NEGATIVE)
--- NOTE | 2022-04-05 16:28 | XRAY ---
Indication: Elevated hemoglobin. Confusion. Blood thinner therapy. Multiple contiguous axial images obtained through the abdomen and pelvis without contrast. Comparison: None Lung bases clear. Heart not enlarged. Large paraesophageal varices. Stomach mildly distended with food/fluid. Noncontrasted stomach and bowel loops nonobstructed with normal air filled appendix. Mild diffuse scattered colonic fecal debris throughout. Mild cirrhotic appearing liver with 15 cm splenomegaly and left upper quadrant splenorenal varices. No free fluid/air. Contracted gallbladder with minimal intraluminal gravel. Remaining pancreas, adrenal glands, kidneys, ureters, and bladder are unremarkable for noncontrast exam. Moderate scattered aortoiliac calcifications without AAA. Osseous structures intact with minimal degenerative changes throughout the spine. No ventral or inguinal hernias. Impression: 1. Cirrhotic liver without ascites. Secondary findings including splenomegaly, splenorenal varices, and large paraesophageal varices. 2. Contracted gallbladder with minimal gallbladder gravel. 3. Mild fecal stasis without obstruction. 4. Arteriosclerotic disease and chronic bony findings.
[2022-04-05] MEDS ORDERED: Zofran 4 MG/2 ML VIAL IV PRN (18:09)
[2022-04-05] MEDS ORDERED: HUMULIN R SQ PRN (18:09)
[2022-04-05] MEDS: Sodium Chloride 0.9% 1000 ML 1,000 ML IV SCH ×2 (18:26→23:40)
[2022-04-05] MEDS: Pepcid 20 MG VIAL IV SCH (21:27)
[2022-04-05] MEDS ORDERED: VITAMIN B-1 100 MG PO ONE (21:50)
[2022-04-05] MEDS ORDERED: Ativan 2 MG/1 ML VIAL IV PRN (21:54)
[2022-04-05] MEDS ORDERED: Enulose 10 GM/15 ML PO SCH (22:15)
[2022-04-05] MEDS: Ativan 1 MG PO PRN (22:21)
[2022-04-05] MEDS: LACTULOSE 20 GM/30ML UD CUP PO SCH (22:21)
[2022-04-06] MEDS: LACTULOSE 20 GM/30ML UD CUP PO SCH ×4 (04:01→22:43)
[2022-04-06] MEDS: Ativan 1 MG PO PRN (04:01)
[2022-04-06 06:23] LABS: Absolute Neutrophil Ct (ANC) 3.17 x10^3/uL (1.4-6.9); Basophil (Absolute #) 0.11 x10^3/uL (0-0.4); Eosinophil (Absolute #) 0.46 x10^3/uL (0-0.5); Hematocrit 30.9 % (42-50); Hemoglobin 9.8 g/dL (12.5-18.0); Lymphocyte (Absolute #) 0.93 x10^3/uL (1.0-4.6); Lymphocytes % 16.1 % (24.0-44.0); Mean Cell Volume 93.4 fL (78-100); Mean Corpuscular Hemoglobin 29.6 pg (26-32); Mean Corpuscular Hgb Concent. 31.7 g/dL (32-36); Mean Platelet Volume 10.5 fL (7.5-11.0); Monocyte (Absolute #) 1.07 x10^3/uL (0.0-1.3); Monocytes % 18.6 % (0.0-12.0); Neutrophil % 55.1 % (36.0-66.0); Platelet Count 78 x10^3/uL (150-450); Red Blood Count 3.31 x10^6/uL (4.1-5.6); Red Cell Distribution Width 17.2 % (11.5-14.0); White Blood Count 5.8 x10^3/uL (4.0-10.5)
[2022-04-06 06:47] LABS: ALBUMIN 2.9 g/dL (3.5-5.0); ALKALINE PHOSPHATASE 108 U/L (38-126); ANION GAP 8.6 MEQ/L (5-15); BLOOD UREA NITROGEN 8 mg/dL (9-20); CHLORIDE 115 mmol/L (98-107); Calcium 7.9 mg/dL (8.4-10.2); Carbon Dioxide 19 mmol/L (22-30); Creatinine 1 0.56 mg/dL (0.66-1.25); EST GLOMERULAR FILTRATION RATE > 60.0 ML/MIN; Glucose 122 mg/dL (74-106); Potassium 3.4 mmol/L (3.5-5.1); SGOT/AST 81 U/L (17-59); SGPT/ALT 45 U/L (0-50); SODIUM 139 mmol/L (137-145); Total Protein 6.7 g/dL (6.3-8.2)
[2022-04-06] MEDS: Pepcid 20 MG VIAL IV SCH ×2 (09:20→21:11)
[2022-04-06] MEDS ORDERED: THIAMINE 200 MG/2 ML*** 100 MG, Vitamins For Infusion 10 ML INJECTION*** 10 ML, FOLNATE... IV SCH ×5 (10:00)
[2022-04-06 10:20] LABS: Slide Review 1 YES
[2022-04-06] MEDS ORDERED: Ativan 1 MG PO PRN (10:22)
[2022-04-06] MEDS ORDERED: Ativan 2 MG/1 ML VIAL IV PRN (10:22)
[2022-04-06] MEDS ORDERED: MEDICATION INTERVENTION MC SCH (11:00)
[2022-04-06] MEDS ORDERED: PLAVIX Tablet PO SCH (11:30)
[2022-04-06] MEDS ORDERED: Klor Con PO SCH (11:30)
[2022-04-06] MEDS: LYRICA 100MG PO SCH ×2 (11:46→21:11)
[2022-04-06] MEDS: Sodium Chloride 0.9% W/ 20 mEq KCl/LITER 1,000 ML IV SCH (18:39)
[2022-04-06] MEDS ORDERED: NON-FORMULARY ITEM (Nortriptyline Hcl [Nortriptyline Hcl] 25 MG Capsule) PO SCH (22:00)
[2022-04-07] MEDS: Sodium Chloride 0.9% W/ 20 mEq KCl/LITER 1,000 ML IV SCH (03:39)
[2022-04-07 04:07] VITALS: O2SAT 95
[2022-04-07] MEDS: LACTULOSE 20 GM/30ML UD CUP PO SCH (04:32)
[2022-04-07 06:39] LABS: Hemoglobin 9.9 g/dL (12.5-18.0); Mean Cell Volume 94.7 fL (78-100); Mean Corpuscular Hemoglobin 29.3 pg (26-32); Mean Corpuscular Hgb Concent. 30.9 g/dL (32-36); Mean Platelet Volume 12.1 fL (7.5-11.0); Platelet Count 89 x10^3/uL (150-450); Red Blood Count 3.38 x10^6/uL (4.1-5.6); Red Cell Distribution Width 17.3 % (11.5-14.0); White Blood Count 7.3 x10^3/uL (4.0-10.5)
[2022-04-07 07:05] LABS: ALBUMIN 2.8 g/dL (3.5-5.0); ALKALINE PHOSPHATASE 111 U/L (38-126); ANION GAP 9.8 MEQ/L (5-15); BLOOD UREA NITROGEN 6 mg/dL (9-20); CHLORIDE 117 mmol/L (98-107); Calcium 7.6 mg/dL (8.4-10.2); Carbon Dioxide 17 mmol/L (22-30); Creatinine 1 0.55 mg/dL (0.66-1.25); EST GLOMERULAR FILTRATION RATE > 60.0 ML/MIN; Glucose 114 mg/dL (74-106); Potassium 3.7 mmol/L (3.5-5.1); SGOT/AST 65 U/L (17-59); SGPT/ALT 42 U/L (0-50); SODIUM 139 mmol/L (137-145); Total Protein 6.8 g/dL (6.3-8.2)
[2022-04-07 07:15] VITALS: BP 128/68; PULSE 80
[2022-04-07] MEDS ORDERED: NON-FORMULARY ITEM (Potassium Chloride [Potassium Chloride] 20 MEQ Tab.Er.Prt) PO SCH (10:00)
== END 2022-04-07 10:25 | disposition home or self-care (01) ==
LOC: ED 10:11 → ICU 17:56 → UNDOADMOB 17:56 → MED SURG 17:56
PROVIDERS: ADMIT Family Medicine; ATTEND General Practice
DX: K76.82 Hepatic encephalopathy (principal); F10.10 Alcohol abuse, uncomplicated; R41.0 Disorientation, unspecified; Z79.01 Long term (current) use of anticoagulants; Z79.899 Other long term (current) drug therapy; Z20.828 Contact with and (suspected) exposure to other viral communicable diseases; Z72.0 Tobacco use
CPT/HCPCS: 0241U; 36000; 36415; 70450; 74176; 80053; 80307; 82140; 82947; 83605; 84436; 84443; 84484; 85025; 85027; 93005; 93041; 93268; 96360; 96365; 99285; 99291; 99292; G0378; G0480; 94762; J2060; J3480; A9270-GY

== ENCOUNTER 2023-11-26 19:37 | Observation (INO) | payer OTHER ==
[2023-11-26 20:09] LABS: Absolute Neutrophil Ct (ANC) 4.12 x10^3/uL (1.78-5.38); BASOPHIL % 0.8 % (0.2-1.2); Basophil (Absolute #) 0.06 x10^3/uL (0.01-0.08); Eosinophil % 8.9 % (0.8-7.0); Eosinophil (Absolute #) 0.69 x10^3/uL (0.04-0.54); Hematocrit 19.8 % (40.1-51.0); IMMATURE GRAN # 0.05 x10^3u/L (0.001-0.031); IMMATURE GRAN % 0.6 % (0.001-0.429); Lymphocytes % 14.1 % (21.8-53.1); Mean Cell Volume 93.4 fL (79.0-92.2); Mean Corpuscular Hemoglobin 28.3 pg (25.7-32.2); Mean Corpuscular Hgb Concent. 30.3 g/dL (32.3-36.5); Mean Platelet Volume 10.9 fL (9.4-12.4); Monocyte (Absolute #) 1.77 x10^3/uL (0.30-0.82); Monocytes % 22.7 % (5.3-12.2); Neutrophil % 52.9 % (34.0-67.9); Platelet Count 75 x10^3/uL (163-337); Red Blood Count 2.12 x10^6/uL (4.63-6.08); Red Cell Distribution Width 24.7 % (11.6-14.4); White Blood Count 7.8 x10^3/uL (4.23-9.07)
[2023-11-26] MEDS: Lasix 40 MG/4 ML IV ONE (20:12)
[2023-11-26] MEDS ORDERED: Lasix 40 MG/4 ML ONE (20:12)
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
[2023-11-26 20:25] LABS: INR 1.79 (0.8-3.0); PROTIME 18.8 SECONDS (9.4-12.5); PTT 34.3 SECONDS (25.1-36.5)
[2023-11-26 20:33] LABS: ALBUMIN 2.5 g/dL (3.5-5.0); ANION GAP 12.9 MEQ/L (5-15); Calcium 7.9 mg/dL (8.4-10.2); Creatinine 1 0.57 mg/dL (0.66-1.25); EST GLOMERULAR FILTRATION RATE 113.6 ML/MIN; Total Protein 6.7 g/dL (6.3-8.2)
[2023-11-26 20:55] LABS: ABO TYPING AB; Antibody Screen NEGATIVE (NEGATIVE); RH TYPING NEGATIVE
[2023-11-26 21:02] LABS: Appearance Clear (Clear); Bacteria None Seen /HPF (None Seen); Bilirubin Negative (Negative); Blood Negative (Negative); Epithelial Cells None Seen /HPF (None Seen); Glucose, Urine Negative (Negative); Hyaline Casts NONE SEEN /LPF (0-2); Ketones Negative (Negative); Leukocyte Esterase Negative (Negative); Nitrite Negative (Negative); Ph 6.5 (4.6-8.0); Protein,Urine Dip Negative (Negative); RBC 0-2 /HPF (0-5); Specific Gravity <=1.005 (1.005-1.030); WBC 0-2 /HPF (0-5)
[2023-11-26 21:04] LABS: ADD URINE CULTURE? NO (NO)
[2023-11-26] MEDS ORDERED: Ativan 2 MG/1 ML VIAL IV PRN (21:37)
[2023-11-26] MEDS ORDERED: Valium 5 MG PO PRN (21:37)
[2023-11-26] MEDS ORDERED: Ativan 1 MG PO PRN (21:37)
[2023-11-26] MEDS ORDERED: VALIUM 10 MG/2 ML SYRINGE IV PRN (21:37)
[2023-11-26] MEDS ORDERED: BENADRYL 50 MG/ML IV PRN (21:39)
[2023-11-26] MEDS ORDERED: Zofran 4 MG/2 ML VIAL IV PRN (21:40)
[2023-11-26] MEDS ORDERED: TYLENOL 325 MG PO PRN (21:40)
[2023-11-26] MEDS ORDERED: Docusate Sodium 100 MG PO PRN (21:40)
[2023-11-26] MEDS: Zanaflex 4 MG PO PRN (21:44)
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
[2023-11-26 22:02] LABS: CROSS MATCH (PRBC) COMPATIBLE (COMPATIBLE)
[2023-11-26 22:04] LABS: CROSS MATCH (PRBC) COMPATIBLE (COMPATIBLE)
[2023-11-26 22:20] LABS: ANION GAP 12.3 MEQ/L (5-15); Calcium 7.8 mg/dL (8.4-10.2); Creatinine 1 0.59 mg/dL (0.66-1.25); EST GLOMERULAR FILTRATION RATE 112.5 ML/MIN; Potassium 3.3 mmol/L (3.5-5.1)
[2023-11-26] MEDS ORDERED: Sodium Chloride 0.9% 1000 ML 1,000 ML IV SCH (22:30)
[2023-11-26] MEDS ORDERED: Sodium Chloride 0.9% 250 ML 250 ML IV ONE (23:15)
[2023-11-26] MEDS: Sodium Chloride 0.9% 250 ML 250 ML IV SCH (23:25)
[2023-11-27 03:45] LABS: Slide Review 1 YES
[2023-11-27 04:58] LABS: Absolute Neutrophil Ct (ANC) 3.18 x10^3/uL (1.78-5.38); BASOPHIL % 1.2 % (0.2-1.2); Basophil (Absolute #) 0.07 x10^3/uL (0.01-0.08); Eosinophil % 7.6 % (0.8-7.0); Eosinophil (Absolute #) 0.44 x10^3/uL (0.04-0.54); IMMATURE GRAN # 0.03 x10^3u/L (0.001-0.031); IMMATURE GRAN % 0.5 % (0.001-0.429); Lymphocyte (Absolute #) 0.79 x10^3/uL (1.32-3.57); Lymphocytes % 13.7 % (21.8-53.1); Mean Cell Volume 93.2 fL (79.0-92.2); Mean Corpuscular Hemoglobin 28.8 pg (25.7-32.2); Mean Corpuscular Hgb Concent. 30.9 g/dL (32.3-36.5); Mean Platelet Volume 10.3 fL (9.4-12.4); Monocyte (Absolute #) 1.26 x10^3/uL (0.30-0.82); Monocytes % 21.8 % (5.3-12.2); Neutrophil % 55.2 % (34.0-67.9); Platelet Count 60 x10^3/uL (163-337); Red Blood Count 2.36 x10^6/uL (4.63-6.08); Red Cell Distribution Width 22.1 % (11.6-14.4); White Blood Count 5.8 x10^3/uL (4.23-9.07)
[2023-11-27 05:07] VITALS: RESP 16
[2023-11-27 05:18] LABS: Hemoglobin 6.8 g/dL (13.7-17.5)
[2023-11-27 05:26] LABS: ALBUMIN 2.1 g/dL (3.5-5.0); BILIRUBIN,TOTAL 9.1 mg/dL (0.2-1.3); Calcium 7.6 mg/dL (8.4-10.2); Creatinine 1 0.61 mg/dL (0.66-1.25); EST GLOMERULAR FILTRATION RATE 111.3 ML/MIN; Potassium 3.7 mmol/L (3.5-5.1); Total Protein 5.9 g/dL (6.3-8.2)
[2023-11-27 06:18] LABS: Slide Review 1 YES
[2023-11-27 08:07] LABS: CROSS MATCH (PRBC) COMPATIBLE (COMPATIBLE)
[2023-11-27] MEDS: Sodium Chloride 0.9% 1000 ML 1,000 ML IV SCH (08:13)
[2023-11-27 09:16] VITALS: BP 88/54; PULSE 63; TEMP 98.2; O2SAT 94
--- NOTE | 2023-11-27 09:48 | PCM.DS ---
Discharge Summary Date of Admission: 11/26/23 21:18 Date of Discharge: 11/27/23 Admitting Physician: REJI MERRITT MD Consults: Consults on Case 11/27/23 07:34 Nutritional Consult ROUTINE Primary Care Provider: ANNIE,DAMION Allergies Allergies No Known Drug Allergies Allergy (Verified 11/26/23 19:44) Hospital Summary - Hospital Course Hospital Course: 11/27/23 is a 58 year old male with a recent history of liver disease and jaundice (in the process of obtaining a workup with a GI physician at ). He presented to the ED on 11/26/23 as a referral from his primary care doctor's office for evaluation and treatment of anemia. Patient had routine labs performed his hemoglobin was 5.9 on admission. Repeat labs in the ED confirmed anemia. He denies hematemesis, melena, BRBPR, abdominal pain, distension, chest pain, dyspnea, dizziness or syncope. He has had lower extremity edema and in the ED he received one dose of IV Lasix. Subsequently he has experienced muscle cramping. He initially denied alcohol abuse history but his serum alcohol level is positive. Transfusion request for 2 units PRBC was initiated in the ED. Hgb this AM is 6.8 and another unit of PRBC ordered. He states he is leaving after blood is done and refusing any further labs. Discussed in detail possible side effects including if he leaves AMA. Offered to consult surgery here for EGD/Colonoscopy and he refused and said he will only see the specialist at [facility]. He states he doesn't care and had a disabled child at home to take care of. He is agreeable to compression stockings of BLLE for edema and nothing else. He denies CP, SOB, abd. pain, N/V/D. He continues to have some muscle cramping of his left hand. Electrolytes reviewed and WNL. Muscle relaxer made him sleepy last night so he does not want today. Left AMA - Vitals & Intake/Output Vital Signs: Vital Signs Temperature 98.2 F 11/27/23 08:00 Pulse Rate 63 11/27/23 08:00 Respiratory Rate 16 11/27/23 08:00 Blood Pressure 88/54 11/27/23 08:00 O2 Sat by Pulse Oximetry 94 L 11/27/23 08:00 Intake & Output: Intake & Output 11/24/23 11/25/23 11/26/23 11/27/23 11:59 11:59 11:59 11:59 Intake Total 1650 Output Total 1000 Balance 650 Weight 92 kg - Lab Result Diagrams: 11/27/23 04:52 11/27/23 04:52 Lab Results-Last 24 Hrs: Lab Results-Last 24 Hours 11/26/23 11/26/23 11/26/23 Range/Units 19:49 19:49 19:49 WBC 7.8 (4.23-9.07) x10^3/uL RBC 2.12 L (4.63-6.08) x10^6/uL Hgb 6.0 L* (13.7-17.5) g/dL Hct 19.8 L (40.1-51.0) % MCV 93.4 H (79.0-92.2) fL MCH 28.3 (25.7-32.2) pg MCHC 30.3 L (32.3-36.5) g/dL RDW 24.7 H (11.6-14.4) % Plt Count 75 L (163-337) x10^3/uL MPV 10.9 (9.4-12.4) fL Gran % 52.9 (34.0-67.9) % Immature Gran % (Auto) 0.6 H (0.001-0.429) % Nucleat RBC Rel Count 0.0 (0.00-0.2) % Eos # (Auto) 0.69 H (0.04-0.54) x10^3/uL Immature Gran # (Auto) 0.05 H (0.001-0.031) x10^3u/L Absolute Lymphs (auto) 1.10 L (1.32-3.57) x10^3/uL Absolute Monos (auto) 1.77 H (0.30-0.82) x10^3/uL Absolute Nucleated RBC 0.00 (0.00-0.012) x10^3u/L Lymphocytes % 14.1 L (21.8-53.1) % Monocytes % 22.7 H (5.3-12.2) % Eosinophils % 8.9 H (0.8-7.0) % Basophils % 0.8 (0.2-1.2) % Absolute Granulocytes 4.12 (1.78-5.38) x10^3/uL Basophils # 0.06 (0.01-0.08) x10^3/uL PT (9.4-12.5) SECONDS INR (0.8-3.0) APTT (25.1-36.5) SECONDS Sodium 133 L (135-145) mmol/L Potassium 4.0 (3.5-5.1) mmol/L Chloride 106 (98-107) mmol/L Carbon Dioxide 18 L (22-30) mmol/L Anion Gap 12.9 (5-15) MEQ/L BUN 4 L (9-20) mg/dL Creatinine 0.57 L (0.66-1.25) mg/dL Estimated GFR 113.6 ML/MIN Glucose 96 (74-106) mg/dL Calcium 7.9 L (8.4-10.2) mg/dL Magnesium (1.6-2.3) mg/dL Total Bilirubin 8.00 H (0.2-1.3) mg/dL AST 96 H (17-59) U/L ALT 58 H (0-50) U/L Alkaline Phosphatase 145 H (38-126) U/L Troponin I (0.000-0.033) ng/mL NT-Pro-B Natriuret Pep 295 (<300) pg/mL Serum Total Protein 6.7 (6.3-8.2) g/dL Albumin 2.5 L (3.5-5.0) g/dL Urine Color (Yellow) Urine Appearance (Clear) Urine pH (4.6-8.0) Ur Specific [place] (1.005-1.030) Urine Protein (Negative) Urine Glucose (UA) (Negative) mg/dL Urine Ketones (Negative) Urine Blood (Negative) Urine Nitrite (Negative) Urine Bilirubin (Negative) Urine Urobilinogen (0.2) mg/dL Ur Leukocyte Esterase (Negative) U Hyaline Cast (Auto) (0-2) /LPF Urine Microscopic RBC (0-5) /HPF Urine Microscopic WBC (0-5) /HPF Ur Epithelial Cells (None Seen) /HPF Urine Bacteria (None Seen) /HPF Urine Culture Reflexed (NO) Ethyl Alcohol 111 H (0-10) mg/dL Slides for Path Review YES ABO Group AB Rh Factor NEGATIVE Antibody Screen NEGATIVE (NEGATIVE) Crossmatch COMPATIBLE (COMPATIBLE) 11/26/23 11/26/23 11/26/23 Range/Units 19:49 19:49 19:49 WBC (4.23-9.07) x10^3/uL RBC (4.63-6.08) x10^6/uL Hgb (13.7-17.5) g/dL Hct (40.1-51.0) % MCV (79.0-92.2) fL MCH (25.7-32.2) pg MCHC (32.3-36.5) g/dL RDW (11.6-14.4) % Plt Count (163-337) x10^3/uL MPV (9.4-12.4) fL Gran % (34.0-67.9) % Immature Gran % (Auto) (0.001-0.429) % Nucleat RBC Rel Count (0.00-0.2) % Eos # (Auto) (0.04-0.54) x10^3/uL Immature Gran # (Auto) (0.001-0.031) x10^3u/L Absolute Lymphs (auto) (1.32-3.57) x10^3/uL Absolute Monos (auto) (0.30-0.82) x10^3/uL Absolute Nucleated RBC (0.00-0.012) x10^3u/L Lymphocytes % (21.8-53.1) % Monocytes % (5.3-12.2) % Eosinophils % (0.8-7.0) % Basophils % (0.2-1.2) % Absolute Granulocytes (1.78-5.38) x10^3/uL Basophils # (0.01-0.08) x10^3/uL PT 18.8 H (9.4-12.5) SECONDS INR 1.79 (0.8-3.0) APTT 34.3 (25.1-36.5) SECONDS Sodium (135-145) mmol/L Potassium (3.5-5.1) mmol/L Chloride (98-107) mmol/L Carbon Dioxide (22-30) mmol/L Anion Gap (5-15) MEQ/L BUN (9-20) mg/dL Creatinine (0.66-1.25) mg/dL Estimated GFR ML/MIN Glucose (74-106) mg/dL Calcium (8.4-10.2) mg/dL Magnesium (1.6-2.3) mg/dL Total Bilirubin (0.2-1.3) mg/dL AST (17-59) U/L ALT (0-50) U/L Alkaline Phosphatase (38-126) U/L Troponin I < 0.012 (0.000-0.033) ng/mL NT-Pro-B Natriuret Pep (<300) pg/mL Serum Total Protein (6.3-8.2) g/dL Albumin (3.5-5.0) g/dL Urine Color (Yellow) Urine Appearance (Clear) Urine pH (4.6-8.0) Ur Specific [place] (1.005-1.030) Urine Protein (Negative) Urine Glucose (UA) (Negative) mg/dL Urine Ketones (Negative) Urine Blood (Negative) Urine Nitrite (Negative) Urine Bilirubin (Negative) Urine Urobilinogen (0.2) mg/dL Ur Leukocyte Esterase (Negative) U Hyaline Cast (Auto) (0-2) /LPF Urine Microscopic RBC (0-5) /HPF Urine Microscopic WBC (0-5) /HPF Ur Epithelial Cells (None Seen) /HPF Urine Bacteria (None Seen) /HPF Urine Culture Reflexed (NO) Ethyl Alcohol (0-10) mg/dL Slides for Path Review ABO Group Rh Factor Antibody Screen (NEGATIVE) Crossmatch COMPATIBLE (COMPATIBLE) 11/26/23 11/26/23 11/27/23 Range/Units 20:50 22:00 00:00 WBC (4.23-9.07) x10^3/uL RBC (4.63-6.08) x10^6/uL Hgb (13.7-17.5) g/dL Hct (40.1-51.0) % MCV (79.0-92.2) fL MCH (25.7-32.2) pg MCHC (32.3-36.5) g/dL RDW (11.6-14.4) % Plt Count (163-337) x10^3/uL MPV (9.4-12.4) fL Gran % (34.0-67.9) % Immature Gran % (Auto) (0.001-0.429) % Nucleat RBC Rel Count (0.00-0.2) % Eos # (Auto) (0.04-0.54) x10^3/uL Immature Gran # (Auto) (0.001-0.031) x10^3u/L Absolute Lymphs (auto) (1.32-3.57) x10^3/uL Absolute Monos (auto) (0.30-0.82) x10^3/uL Absolute Nucleated RBC (0.00-0.012) x10^3u/L Lymphocytes % (21.8-53.1) % Monocytes % (5.3-12.2) % Eosinophils % (0.8-7.0) % Basophils % (0.2-1.2) % Absolute Granulocytes (1.78-5.38) x10^3/uL Basophils # (0.01-0.08) x10^3/uL PT (9.4-12.5) SECONDS INR (0.8-3.0) APTT (25.1-36.5) SECONDS Sodium 134 L (135-145) mmol/L Potassium 3.3 L (3.5-5.1) mmol/L Chloride 106 (98-107) mmol/L Carbon Dioxide 18 L (22-30) mmol/L Anion Gap 12.3 (5-15) MEQ/L BUN 4 L (9-20) mg/dL Creatinine 0.59 L (0.66-1.25) mg/dL Estimated GFR 112.5 ML/MIN Glucose 120 H (74-106) mg/dL Calcium 7.8 L (8.4-10.2) mg/dL Magnesium 2.0 (1.6-2.3) mg/dL Total Bilirubin (0.2-1.3) mg/dL AST (17-59) U/L ALT (0-50) U/L Alkaline Phosphatase (38-126) U/L Troponin I (0.000-0.033) ng/mL NT-Pro-B Natriuret Pep (<300) pg/mL Serum Total Protein (6.3-8.2) g/dL Albumin (3.5-5.0) g/dL Urine Color Yellow (Yellow) Urine Appearance Clear (Clear) Urine pH 6.5 (4.6-8.0) Ur Specific [place] <=1.005 (1.005-1.030) Urine Protein Negative (Negative) Urine Glucose (UA) Negative (Negative) mg/dL Urine Ketones Negative (Negative) Urine Blood Negative (Negative) Urine Nitrite Negative (Negative) Urine Bilirubin Negative (Negative) Urine Urobilinogen 1.0 A (0.2) mg/dL Ur Leukocyte Esterase Negative (Negative) U Hyaline Cast (Auto) NONE SEEN (0-2) /LPF Urine Microscopic RBC 0-2 (0-5) /HPF Urine Microscopic WBC 0-2 (0-5) /HPF Ur Epithelial Cells None Seen (None Seen) /HPF Urine Bacteria None Seen (None Seen) /HPF Urine Culture Reflexed NO (NO) Ethyl Alcohol (0-10) mg/dL Slides for Path Review ABO Group Rh Factor Antibody Screen (NEGATIVE) Crossmatch COMPATIBLE (COMPATIBLE) 11/27/23 11/27/23 11/27/23 Range/Units 00:30 04:52 04:52 WBC 5.8 (4.23-9.07) x10^3/uL RBC 2.36 L (4.63-6.08) x10^6/uL Hgb 6.8 L* (13.7-17.5) g/dL Hct 22.0 L (40.1-51.0) % MCV 93.2 H (79.0-92.2) fL MCH 28.8 (25.7-32.2) pg MCHC 30.9 L (32.3-36.5) g/dL RDW 22.1 H (11.6-14.4) % Plt Count 60 L (163-337) x10^3/uL MPV 10.3 (9.4-12.4) fL Gran % 55.2 (34.0-67.9) % Immature Gran % (Auto) 0.5 H (0.001-0.429) % Nucleat RBC Rel Count 0.0 (0.00-0.2) % Eos # (Auto) 0.44 (0.04-0.54) x10^3/uL Immature Gran # (Auto) 0.03 (0.001-0.031) x10^3u/L Absolute Lymphs (auto) 0.79 L (1.32-3.57) x10^3/uL Absolute Monos (auto) 1.26 H (0.30-0.82) x10^3/uL Absolute Nucleated RBC 0.00 (0.00-0.012) x10^3u/L Lymphocytes % 13.7 L (21.8-53.1) % Monocytes % 21.8 H (5.3-12.2) % Eosinophils % 7.6 H (0.8-7.0) % Basophils % 1.2 (0.2-1.2) % Absolute Granulocytes 3.18 (1.78-5.38) x10^3/uL Basophils # 0.07 (0.01-0.08) x10^3/uL PT (9.4-12.5) SECONDS INR (0.8-3.0) APTT (25.1-36.5) SECONDS Sodium 132 L (135-145) mmol/L Potassium 3.7 (3.5-5.1) mmol/L Chloride 108 H (98-107) mmol/L Carbon Dioxide 20 L (22-30) mmol/L Anion Gap 9.0 (5-15) MEQ/L BUN 6 L (9-20) mg/dL Creatinine 0.61 L (0.66-1.25) mg/dL Estimated GFR 111.3 ML/MIN Glucose 111 H (74-106) mg/dL Calcium 7.6 L (8.4-10.2) mg/dL Magnesium (1.6-2.3) mg/dL Total Bilirubin 9.10 H (0.2-1.3) mg/dL AST 77 H (17-59) U/L ALT 50 (0-50) U/L Alkaline Phosphatase 110 (38-126) U/L Troponin I < 0.012 (0.000-0.033) ng/mL NT-Pro-B Natriuret Pep (<300) pg/mL Serum Total Protein 5.9 L (6.3-8.2) g/dL Albumin 2.1 L (3.5-5.0) g/dL Urine Color (Yellow) Urine Appearance (Clear) Urine pH (4.6-8.0) Ur Specific [place] (1.005-1.030) Urine Protein (Negative) Urine Glucose (UA) (Negative) mg/dL Urine Ketones (Negative) Urine Blood (Negative) Urine Nitrite (Negative) Urine Bilirubin (Negative) Urine Urobilinogen (0.2) mg/dL Ur Leukocyte Esterase (Negative) U Hyaline Cast (Auto) (0-2) /LPF Urine Microscopic RBC (0-5) /HPF Urine Microscopic WBC (0-5) /HPF Ur Epithelial Cells (None Seen) /HPF Urine Bacteria (None Seen) /HPF Urine Culture Reflexed (NO) Ethyl Alcohol (0-10) mg/dL Slides for Path Review YES ABO Group Rh Factor Antibody Screen (NEGATIVE) Crossmatch (COMPATIBLE) 11/27/23 Range/Units 04:52 WBC (4.23-9.07) x10^3/uL RBC (4.63-6.08) x10^6/uL Hgb (13.7-17.5) g/dL Hct (40.1-51.0) % MCV (79.0-92.2) fL MCH (25.7-32.2) pg MCHC (32.3-36.5) g/dL RDW (11.6-14.4) % Plt Count (163-337) x10^3/uL MPV (9.4-12.4) fL Gran % (34.0-67.9) % Immature Gran % (Auto) (0.001-0.429) % Nucleat RBC Rel Count (0.00-0.2) % Eos # (Auto) (0.04-0.54) x10^3/uL Immature Gran # (Auto) (0.001-0.031) x10^3u/L Absolute Lymphs (auto) (1.32-3.57) x10^3/uL Absolute Monos (auto) (0.30-0.82) x10^3/uL Absolute Nucleated RBC (0.00-0.012) x10^3u/L Lymphocytes % (21.8-53.1) % Monocytes % (5.3-12.2) % Eosinophils % (0.8-7.0) % Basophils % (0.2-1.2) % Absolute Granulocytes (1.78-5.38) x10^3/uL Basophils # (0.01-0.08) x10^3/uL PT (9.4-12.5) SECONDS INR (0.8-3.0) APTT (25.1-36.5) SECONDS Sodium (135-145) mmol/L Potassium (3.5-5.1) mmol/L Chloride (98-107) mmol/L Carbon Dioxide (22-30) mmol/L Anion Gap (5-15) MEQ/L BUN (9-20) mg/dL Creatinine (0.66-1.25) mg/dL Estimated GFR ML/MIN Glucose (74-106) mg/dL Calcium (8.4-10.2) mg/dL Magnesium (1.6-2.3) mg/dL Total Bilirubin (0.2-1.3) mg/dL AST (17-59) U/L ALT (0-50) U/L Alkaline Phosphatase (38-126) U/L Troponin I < 0.012 (0.000-0.033) ng/mL NT-Pro-B Natriuret Pep (<300) pg/mL Serum Total Protein (6.3-8.2) g/dL Albumin (3.5-5.0) g/dL Urine Color (Yellow) Urine Appearance (Clear) Urine pH (4.6-8.0) Ur Specific [place] (1.005-1.030) Urine Protein (Negative) Urine Glucose (UA) (Negative) mg/dL Urine Ketones (Negative) Urine Blood (Negative) Urine Nitrite (Negative) Urine Bilirubin (Negative) Urine Urobilinogen (0.2) mg/dL Ur Leukocyte Esterase (Negative) U Hyaline Cast (Auto) (0-2) /LPF Urine Microscopic RBC (0-5) /HPF Urine Microscopic WBC (0-5) /HPF Ur Epithelial Cells (None Seen) /HPF Urine Bacteria (None Seen) /HPF Urine Culture Reflexed (NO) Ethyl Alcohol (0-10) mg/dL Slides for Path Review ABO Group Rh Factor Antibody Screen (NEGATIVE) Crossmatch (COMPATIBLE) - Procedures and Test Procedures and Tests throughout Hospitalization: Therapy Orders & Screens 11/26/23 22:18 OT Screen per Nursing Assess ONCE Comment: Protocol Order Physician Instructions: Greater than 3 points order OT Admission Screening Reason For Exam: Triggered on Admission Diagnosis: Symptomatic anemia Open Wound/Cellutlitis/Pressure Ulcers: Yes Acute Fx/ORIF/Change in wt bearing status: No Severe MUSCULOSKELETAL pain: No ADL Dysfunction: No Acute CVA w/Hemiparesis/Hemiplegia: No Decreased Functional Mobility/Strength: Yes Sprain/Strain: No Acute Post-op Mobility Dysfunction: No Total Points: 6 PT Screen per Nursing Assess ONCE Comment: Protocol Order Physician Instructions: Greater than 3 points order PT Admission Screenin Reason For Exam: Triggered on Admission Diagnosis: Symptomatic anemia Open Wound/Cellutlitis/Pressure Ulcers: Yes Acute Fx/ORIF/Change in wt bearing status: No Severe MUSCULOSKELETAL pain: No ADL Dysfunction: No Acute CVA w/Hemiparesis/Hemiplegia: No Decreased Functional Mobility/Strength: Yes Sprain/Strain: No Acute Post-op Mobility Dysfunction: No Total Points: 6 Smoking Cessation Education ONCE Comment: Diagnosis: Symptomatic anemia Smoking Status: Current every day smoker How long have you smoked: 40 years Have you smoked in the past 12 months: Yes Do you dip or chew tobacco: No 11/27/23 02:24 Oxygen Nasal Cannula 2 lpm Comment: Diagnosis: Symptomatic anemia Discharge Exam General Appearance: no apparent distress, alert, thin Neurologic Exam: alert, oriented x 3, cooperative, normal mood/affect, nml cerebellar function, sensation nml, No motor deficits Eye Exam: PERRL, EOMI, eyes nml inspection, other (jaundice) Ears, Nose, Throat Exam: normal ENT inspection, pharynx normal, moist mucous membranes Neck Exam: normal inspection, non-tender, supple, full range of motion Respiratory Exam: normal breath sounds, lungs clear, No respiratory distress Cardiovascular Exam: regular rate/rhythm, normal heart sounds, edema (+ 3 pitting edema of BLLE) Gastrointestinal/Abdomen Exam: soft, No tenderness, No mass Male Genitalia Exam: deferred Rectal Exam: deferred Back Exam: normal inspection, normal range of motion, No CVA tenderness, No vertebral tenderness Extremity Exam: normal inspection, normal range of motion, swelling (BLLE), other (Cramping of left hand) Skin Exam: normal color, warm, dry, jaundice Wound Assessment: Skin/Wound Assessment Wound/Incision Assessment Start: 11/26/23 22:18 Text: Status: Active Freq: Q6H Protocol: Document 11/27/23 06:00 AR (Rec: 11/27/23 06:18 AR [id number]) Wound/Incision Assessment Left thigh Wound Assessment Shift Assessment Wound Type Bruise General Appearance Well Approximated Surrounding Tissue Purple Comment Large pruple bruise on the back of patient's thigh and part of buttock. Patient states he fell x 3 weeks ago. Wound Photo Photo Taken No Final Diagnosis/Problem List - Final Discharge Diagnosis/Problem (1) Anemia Current Visit: Yes Status: Acute Assessment & Plan: - 2 units PRNBC gave last night for HGB of 6.0 on admission - This AM HGB 6.8- another unit ordered - No melena by history. - Endoscopy is planned as an outpatient at . - Placed on PPI. - pt refused further labs and left AMA Code(s): D64.9 - ANEMIA, UNSPECIFIED (2) Elevated bilirubin Current Visit: Yes Status: Acute Assessment & Plan: - 2:2 liver failure - Bili 9.10 - F/u OP with specialist at [facility] Code(s): R17 - UNSPECIFIED JAUNDICE (3) Scleral icterus Current Visit: Yes Status: Acute Assessment & Plan: - 2:2 alcoholic hepatitis - F/u for OP workup at [facility] Code(s): R17 - UNSPECIFIED JAUNDICE (4) Alcohol abuse Current Visit: No Status: Acute Assessment & Plan: - Folate, thiamine, multivitamin. [facility] protocol. Code(s): F10.10 - ALCOHOL ABUSE, UNCOMPLICATED (5) Alcoholic hepatitis Current Visit: No Status: Chronic Assessment & Plan: - Alcohol level 111 on admission last night - refused repeat lab today - Workup planned at . - trend LFTs Code(s): K70.10 - ALCOHOLIC HEPATITIS WITHOUT ASCITES (6) Hypokalemia Current Visit: No Status: Resolved Assessment & Plan: - resolved with replacement last night - today K+ 3.7 Code(s): E87.6 - HYPOKALEMIA (7) Leg edema Current Visit: Yes Status: Chronic Assessment & Plan: - Received Lasix IV x 1. - Agreeable to DAQUAN raphael - BP soft unable to give more lasix this AM Code(s): R60.0 - LOCALIZED EDEMA - Discharge Discharge Date: 11/27/23 Disposition: Against Medical Advice Condition: Stable Prescriptions: New PANTOPRAZOLE 40 mg Tablet [Protonix 40MG Tablet] 40 mg PO DAILY 30 Days #30 tablet Thiamine HCl 100 mg [Vitamin B-1 100 mg] 100 mg PO DAILY 30 Days #30 tablet Continue Potassium Chloride 20 meq PO DAILY Clopidogrel Bisulfate [PLAVIX Tablet] 75 mg PO DAILY Folic Acid 1 mg [Folate 1 mg] 1 mg PO DAILY Follow up with: DAMION VALENCIA MD [Primary Care Provider] -
[2023-11-27] MEDS ORDERED: Protonix 40MG Tablet PO SCH (10:00)
[2023-11-27] MEDS ORDERED: THERAGRAN MULTIVITAMIN PO SCH (10:00)
[2023-11-27] MEDS ORDERED: NON-FORMULARY ITEM (Potassium Chloride [Potassium Chloride] 20 MEQ Tab.Er.Prt) PO SCH (10:00)
[2023-11-27] MEDS ORDERED: Klor Con PO SCH (10:00)
[2023-11-27] MEDS ORDERED: FOLATE 1 MG PO SCH (10:00)
[2023-11-27] MEDS ORDERED: PLAVIX Tablet PO SCH (10:00)
[2023-11-27] MEDS ORDERED: VITAMIN B-1 100 MG PO SCH (10:00)
== END 2023-11-27 09:35 | disposition left against medical advice (07) ==
LOC: ED 19:37 → MED SURG 21:18
PROVIDERS: ADMIT Internal Medicine; ATTEND Internal Medicine
DX: D64.9 Anemia, unspecified (principal); H15.89 Other disorders of sclera; F10.10 Alcohol abuse, uncomplicated; K70.10 Alcoholic hepatitis without ascites; E87.6 Hypokalemia; R60.0 Localized edema; F17.200 Nicotine dependence, unspecified, uncomplicated; Z79.01 Long term (current) use of anticoagulants; Z79.899 Other long term (current) drug therapy
CPT/HCPCS: 36000; 36415; 36430; 80048; 80053; 81001; 82077; 83735; 83880; 84484; 85025; 85610; 85730; 86850; 86900; 86901; 86922; 93005; 93041; 94760; 96374; 99285; P9016; Q3014; 93268; J1940; A9270-GY; G0378

== ENCOUNTER 2024-01-20 12:55 | Observation (INO) | payer MEDICAID, OTHER ==
[2024-01-20] MEDS ORDERED: MORPHINE SULFATE 2 MG INJ ONE (13:18)
[2024-01-20] MEDS ORDERED: Zofran 4 MG/2 ML VIAL ONE (13:18)
[2024-01-20] MEDS: MORPHINE SULFATE 2 MG INJ IV ONE (13:20)
[2024-01-20] MEDS: Zofran 4 MG/2 ML VIAL IV ONE (13:20)
[2024-01-20] MEDS: Sodium Chloride 0.9% 1000 ML 1,000 ML IV SCH (13:20)
[2024-01-20 13:21] LABS: Absolute Neutrophil Ct (ANC) 3.82 x10^3/uL (1.78-5.38); Basophil (Absolute #) 0.06 x10^3/uL (0.01-0.08); Eosinophil % 3.8 % (0.8-7.0); Eosinophil (Absolute #) 0.23 x10^3/uL (0.04-0.54); Hematocrit 25.5 % (40.1-51.0); Hemoglobin 8.2 g/dL (13.7-17.5); IMMATURE GRAN # 0.03 x10^3u/L (0.001-0.031); IMMATURE GRAN % 0.5 % (0.001-0.429); Lymphocyte (Absolute #) 0.92 x10^3/uL (1.32-3.57); Lymphocytes % 15.2 % (21.8-53.1); Mean Cell Volume 115.4 fL (79.0-92.2); Mean Corpuscular Hemoglobin 37.1 pg (25.7-32.2); Mean Corpuscular Hgb Concent. 32.2 g/dL (32.3-36.5); Monocyte (Absolute #) 1.01 x10^3/uL (0.30-0.82); Monocytes % 16.6 % (5.3-12.2); Neutrophil % 62.9 % (34.0-67.9); Platelet Count 47 x10^3/uL (163-337); Red Blood Count 2.21 x10^6/uL (4.63-6.08); Red Cell Distribution Width 25.6 % (11.6-14.4); White Blood Count 6.1 x10^3/uL (4.23-9.07)
[2024-01-20 13:32] LABS: ALBUMIN 2.3 g/dL (3.5-5.0); ANION GAP 6.7 MEQ/L (5-15); BILIRUBIN,TOTAL 13.7 mg/dL (0.2-1.3); Creatinine 1 0.53 mg/dL (0.66-1.25); EST GLOMERULAR FILTRATION RATE 116.2 ML/MIN; Total Protein 6.4 g/dL (6.3-8.2)
[2024-01-20 13:38] LABS: Potassium 2.6 mmol/L (3.5-5.1)
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
[2024-01-20 13:55] LABS: Slide Review 1 YES
[2024-01-20 14:06] LABS: INR 1.87 (0.8-3.0); PROTIME 19.6 SECONDS (9.4-12.5); PTT 36.4 SECONDS (25.1-36.5)
--- NOTE | 2024-01-20 14:39 | XRAY ---
Indication: Pain. History of cirrhosis. Multiple contiguous images obtained through the abdomen and pelvis without contrast. Comparison: April 05, 2022 Lung bases demonstrates new incompletely visualized small bilateral effusions with compressive atelectasis. Heart not enlarged. Grossly stable large paraesophageal varices. New bilateral gynecomastia. Noncontrasted stomach and bowel loops appear nonobstructed. Smaller cirrhotic liver with now massive abdominal/pelvic ascites. Again splenomegaly measuring 14 cm and splenorenal varices. No free air. Remaining gallbladder, pancreas, adrenal glands, kidneys, ureters, and bladder are unremarkable for noncontrast exam. There remains moderate scattered aortoiliac calcifications with 3.4 x 3.4 cm distal AAA. Osseous structures intact again with mild degenerative changes throughout spine and both hips. New diffuse anasarca. Impression: 1. New small bilateral effusions without cardiomegaly. 2. Worsening cirrhotic liver with now massive abdominal/pelvic ascites and diffuse anasarca. Again incidental secondary findings including splenomegaly, splenorenal varices, and large paraesophageal varices. 3. Again chronic findings including arteriosclerotic disease with stable AAA and chronic bony findings. 4. New bilateral gynecomastia.
--- NOTE | 2024-01-20 14:41 | XRAY ---
Indication: Confusion. History of cirrhosis. Multiple contiguous axial images obtained through the head without contrast. Comparison: April 05, 2022 Again age-appropriate global atrophy and minimal periventricular degenerative micro-ischemia bilaterally. No acute intracranial hemorrhage, abnormal extra axial fluid collection, or mass effect. Fourth ventricle is midline without hydrocephalus. Bony calvarium intact. Visualized paranasal sinuses and mastoid air cells are clear. Impression: Again nonacute senile brain. Given same day CT abdomen/pelvis findings and history of cirrhosis, rule out hepatic encephalopathy.
[2024-01-20 14:51] LABS: ADD URINE CULTURE? YES (NO); Appearance Clear (Clear); Bacteria Few /HPF (None Seen); Bilirubin Large (Negative); Blood Negative (Negative); Epithelial Cells None Seen /HPF (None Seen); Glucose, Urine Negative (Negative); Hyaline Casts NONE SEEN /LPF (0-2); Ketones Negative (Negative); Leukocyte Esterase Small (Negative); Nitrite Positive (Negative); Protein,Urine Dip Trace (Negative); RBC 0-2 /HPF (0-5); Specific Gravity 1.025 (1.005-1.030); WBC 0-2 /HPF (0-5)
[2024-01-20] MEDS ORDERED: ROCEPHIN 1 GM / 100 ML NaCl 1 GM/100 ML IVPB IV ONE (14:56)
[2024-01-20] MEDS: ROCEPHIN 1 GM / 100 ML NaCl 1 GM/100 ML IVPB IV ONE (14:58)
[2024-01-20] MEDS ORDERED: Magnesium 1 Gm / 100 Ml D5W*** 100 ML IV ONE ×2 (15:34→16:19)
[2024-01-20] MEDS: POTASSIUM CHLORIDE 20 mEq IN WATER 100ML 20 MEQ/100 ML BAG IV SCH (15:36)
[2024-01-20] MEDS: Magnesium 1 Gm / 100 Ml D5W*** 100 ML IV SCH (15:36)
[2024-01-20] MEDS ORDERED: Hydromorphone 1 mg/ml Injection ONE (17:05)
[2024-01-20] MEDS: Hydromorphone 1 mg/ml Injection IV ONE (17:06)
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
[2024-01-20] MEDS ORDERED: solu-MEDROL ONE (22:31)
[2024-01-20] MEDS ORDERED: COREG 12.5 MG ONE (22:31)
[2024-01-20] MEDS ORDERED: Cozaar 50 MG ONE (22:31)
[2024-01-20] MEDS ORDERED: NORVASC 5 MG ONE (22:32)
[2024-01-20] MEDS ORDERED: Pepcid 20 MG ONE (22:32)
[2024-01-20] MEDS ORDERED: Sterile H2O 10 ml IJ ONE (22:32)
[2024-01-20] MEDS ORDERED: Mucinex 600MG ER Tabs PO ONE (22:32)
[2024-01-20] MEDS ORDERED: CLONIDINE 0.1 MG TABLET ONE (22:32)
[2024-01-20] MEDS ORDERED: BUMEX 1 MG ONE (22:58)
[2024-01-20] MEDS: BUMEX 1 MG IV STA (22:59)
[2024-01-20] MEDS: ROCEPHIN 1 GM / 100 ML NaCl 1 GM/100 ML IVPB IV SCH (23:09)
[2024-01-20] MEDS: Inderal PO SCH (23:09)
[2024-01-20] MEDS: Protonix 40MG Tablet PO SCH (23:10)
[2024-01-20] MEDS: Hydromorphone 1 mg/ml Injection IV PRN (23:10)
[2024-01-21 00:03] VITALS: BP 106/80; PULSE 70; RESP 21; TEMP 96.8; O2SAT 95
[2024-01-21] MEDS ORDERED: LACTULOSE 20 GM/30ML UD CUP ONE ×2 (00:26→02:50)
[2024-01-21] MEDS: Enulose 10 GM/15 ML PO SCH (00:30)
[2024-01-21] MEDS ORDERED: NON-FORMULARY ITEM (Potassium Chloride [Potassium Chloride] 20 MEQ Tab.Er.Prt) PO SCH (10:00)
[2024-01-21] MEDS ORDERED: FOLATE 1 MG PO SCH (10:00)
[2024-01-21] MEDS ORDERED: VITAMIN B-1 100 MG PO SCH (10:00)
[2024-01-21] MEDS ORDERED: NON-FORMULARY ITEM (Multivitamin [Multi-Vitamin Daily] 1 EACH Tablet) PO SCH (10:00)
== END 2024-01-21 03:25 | disposition short-term general hospital (02) ==
LOC: ED 12:55 → MED SURG 20:37
PROVIDERS: ADMIT Internal Medicine; ATTEND Internal Medicine
DX: K76.82 Hepatic encephalopathy (principal); R60.1 Generalized edema; E87.6 Hypokalemia; N39.0 Urinary tract infection, site not specified; K72.90 Hepatic failure, unspecified without coma; D69.6 Thrombocytopenia, unspecified; R10.9 Unspecified abdominal pain; I85.00 Esophageal varices without bleeding; F17.200 Nicotine dependence, unspecified, uncomplicated; K70.10 Alcoholic hepatitis without ascites; F10.10 Alcohol abuse, uncomplicated; Z79.899 Other long term (current) drug therapy
CPT/HCPCS: 36000; 36415; 70450; 74176; 80053; 81001; 82140; 83605; 83690; 84484; 85025; 85610; 85730; 87040; 87086; 96365; 96367; 96374; 96375; 99285; G0378; Q3014; J0696; J1170; J2270; J2405; J2919; J3475; J3480; A9270-GY

== ENCOUNTER 2024-02-01 03:08 | Emergency (ER) | payer MEDICAID ==
[2024-02-01] MEDS ORDERED: FEVERALL 650 MG ONE (03:18)
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
[2024-02-01] MEDS ORDERED: Sodium Chloride 0.9% 1000 ML 1,000 ML ONE ×4 (03:52→08:50)
[2024-02-01] MEDS: FEVERALL 650 MG PR ONE (03:52)
[2024-02-01] MEDS ORDERED: ROCEPHIN 1 GM / 100 ML NaCl 1 GM/100 ML IVPB IV ONE (03:52)
[2024-02-01] MEDS: ROCEPHIN 1 GM / 100 ML NaCl 1 GM/100 ML IVPB IV ONE (03:53)
[2024-02-01] MEDS: Sodium Chloride 0.9% 1000 ML 1,000 ML IV SCH ×2 (03:53→05:17)
[2024-02-01 04:17] LABS: Absolute Neutrophil Ct (ANC) 1.79 x10^3/uL (1.78-5.38); Basophil (Absolute #) 0 x10^3/uL (0.01-0.08); Eosinophil % 1.3 % (0.8-7.0); Eosinophil (Absolute #) 0.03 x10^3/uL (0.04-0.54); Hematocrit 26.7 % (40.1-51.0); Hemoglobin 8.9 g/dL (13.7-17.5); IMMATURE GRAN # 0.01 x10^3u/L (0.001-0.031); IMMATURE GRAN % 0.4 % (0.001-0.429); Lymphocytes % 13.2 % (21.8-53.1); Mean Cell Volume 118.1 fL (79.0-92.2); Mean Corpuscular Hemoglobin 39.4 pg (25.7-32.2); Mean Corpuscular Hgb Concent. 33.3 g/dL (32.3-36.5); Mean Platelet Volume 11.8 fL (9.4-12.4); Monocyte (Absolute #) 0.14 x10^3/uL (0.30-0.82); Monocytes % 6.2 % (5.3-12.2); NUCLEATED RBC # 0.02 x10^3u/L (0.00-0.012); NUCLEATED RBC % 0.9 % (0.00-0.2); Neutrophil % 78.9 % (34.0-67.9); Platelet Count 74 x10^3/uL (163-337); Red Blood Count 2.26 x10^6/uL (4.63-6.08); Red Cell Distribution Width 25.7 % (11.6-14.4); White Blood Count 2.3 x10^3/uL (4.23-9.07)
[2024-02-01 04:20] VITALS: TEMP 104.2
[2024-02-01 04:24] LABS: ALBUMIN 2.3 g/dL (3.5-5.0); ANION GAP 8.7 MEQ/L (5-15); BILIRUBIN,TOTAL 13.6 mg/dL (0.2-1.3); Calcium 7.9 mg/dL (8.4-10.2); Creatinine 1 0.55 mg/dL (0.66-1.25); EST GLOMERULAR FILTRATION RATE 114.9 ML/MIN; Potassium 3.4 mmol/L (3.5-5.1); Total Protein 6.3 g/dL (6.3-8.2)
[2024-02-01 04:27] LABS: Appearance Clear (Clear); Bacteria None Seen /HPF (None Seen); Bilirubin Moderate (Negative); Blood Negative (Negative); Epithelial Cells None Seen /HPF (None Seen); Glucose, Urine Negative (Negative); Hyaline Casts NONE SEEN /LPF (0-2); Ketones Negative (Negative); Leukocyte Esterase Trace (Negative); Ph 7.5 (4.6-8.0); Protein,Urine Dip Negative (Negative); RBC 0-2 /HPF (0-5); Specific Gravity 1.015 (1.005-1.030); WBC 0-2 /HPF (0-5)
[2024-02-01 04:30] LABS: INR 1.78 (0.8-3.0); PROTIME 18.7 SECONDS (9.4-12.5)
[2024-02-01 04:31] LABS: ADD URINE CULTURE? ORDERED SEPARATELY (NO)
[2024-02-01 04:48] LABS: INFLUENZA A NEGATIVE (NEGATIVE); INFLUENZA B NEGATIVE (NEGATIVE); RESPIRATORY SYNCTIAL VIRUS NEGATIVE (NEGATIVE); SARS-CoV-2 Xpert Express NEGATIVE (NEGATIVE)
[2024-02-01 05:05] LABS: Slide Review 1 YES
[2024-02-01] MEDS ORDERED: OFIRMEV 100 ML IV ONE (05:07)
[2024-02-01] MEDS: OFIRMEV IV ONE (05:11)
[2024-02-01] MEDS: Sodium Chloride 0.9% 1000 ML 1,000 ML IV STA ×2 (05:15→06:57)
--- NOTE | 2024-02-01 05:35 | XRAY ---
Indication: Fever. Comparison: September 12, 2020 Portable chest less inflated with now subtle right infrahilar infiltrate versus atelectasis. Remaining heart and left lung normal. Bony thorax intact.
[2024-02-01] MEDS ORDERED: NOREPINEPHRINE 8 MG/250 ML-D5W 8 MG/250 ML PLAST..BAG IV ONE (07:19)
[2024-02-01] MEDS: NOREPINEPHRINE 8 MG/250 ML-D5W 8 MG/250 ML PLAST..BAG IV PRN (07:24)
[2024-02-01] MEDS ORDERED: PIPERACILLIN/TAZOBACTAM IV ONE (07:26)
[2024-02-01] MEDS ORDERED: Sodium Chloride 100ML MINI-BAG PLUS 100 ML IV ONE (07:26)
[2024-02-01] MEDS: PIPERACILLIN/TAZOBACTAM 3.375 GM in Sodium Chloride 100ML MINI-BAG PLUS 100 ML IV ONE (07:27)
[2024-02-01 08:18] VITALS: RESP 24
[2024-02-01 08:41] LABS: ABO TYPING AB; Antibody Screen NEGATIVE (NEGATIVE); RH TYPING NEGATIVE
[2024-02-01 08:43] LABS: CROSS MATCH (PRBC) COMPATIBLE (COMPATIBLE)
[2024-02-01] MEDS ORDERED: VANCOMYCIN 2 GRAM/400 ML BAG 2 GM/400 ML PIGGYBACK IV ONE (08:46)
[2024-02-01] MEDS: VANCOMYCIN 2 GRAM/400 ML BAG 2 GM/400 ML PIGGYBACK IV ONE (08:47)
--- NOTE | 2024-02-01 09:07 | XRAY ---
CLINICAL HISTORY: pneumonia, sepsis COMPARISON: None. TECHNIQUE: Axial CT images of the chest were acquired without administration of intravenous contrast. Coronal and sagittal reconstructions were obtained. one of the following dose reduction techniques were utilized for this exam: Automated exposure control, adjustment of the mA and/or kV according to patient size, use of iterative reconstruction. FINDINGS: Suboptimal study due to multiple respiratory artifacts during the course of image acquisition. No gross pulmonary consolidations or masses. Nodules can't be excluded. Possible mild right basal dependent ground glass gravitational opacities. Posterior mediastinal (right para esophageal) possibly enlarged lymph nodes are noted. No appreciable mediastinal collections. Mild cardiomegaly. No pleural effusions. No gross lytic or sclerotic lesions in the visualized spine. Upper abdominal cuts reveal intraperitoneal free fluid and suggest enlarged gastro-esophageal retroperitoneal lymph nodes. IMPRESSION: 1. No obvious/gross acute pulmonary pathology. 2. Mild right basal dependent ground glass opacities, likely gravitational in nature. Inflammatory etiology can't be excluded, however. 3. Posterior mediastinal (right para esophageal) possibly enlarged lymph nodes. 4. Upper abdominal cuts reveal intraperitoneal free fluid and suggest enlarged gastro-esophageal retroperitoneal lymph nodes. 5. Mild cardiomegaly. [facility] ER was called at [phone] at 7:57 AM WOOD TREATING INSPECTOR, 02/01/2024 and Isi Nurse was informed regarding the presence of Important Medical Findings in the report. Electronically Signed by: Laurel Parra MD. (02/01/2024 09:03:12 EDT)
[2024-02-01 09:15] LABS: IFOB TEST RESULTS NEGATIVE (NEGATIVE)
--- NOTE | 2024-02-01 09:25 | XRAY ---
CLINICAL HISTORY: abd pain COMPARISON: none TECHNIQUE: CT scan of the abdomen and pelvis was performed with IV contrast. . Coronal and sagittal reconstructive images were also obtained. One of the following dose reduction techniques was utilized for this exam.Automated exposure control, adjustment of the mA and/or kV according to patient size, and use of iterative reconstruction. FINDINGS: A scan through the lower chest reveals unremarkable lung basis and heart. Multiple esophageal varices are noted. Abdomen: The liver is of average size with a cirrhotic pattern. No focal or diffuse parenchymal abnormality. The portal vein, intrahepatic biliary radicals and the bile ducts are normal. The spleen is mildly enlarged measuring 14.5 cm. The pancreas, and adrenal glands are unremarkable. Multiple epigastric and splenorenal collaterals are noted The kidneys are unremarkable. They are normal in size and shape. No calculi or hydronephrosis. The gallbladder is distended and shows no definite stones. There is no evidence of wall thickening/ pericholecystic collection. The ascending colon, the transverse colon, the descending colon, show a long segment of diffuse wall thickening with a maximum thickness of 12 mm. visualized small bowel loops are unremarkable. There is no evidence of significant enlargement of the mesenteric or retroperitoneal lymph nodes. Moderate pelvic abdominal free fluid with nonspecific peritoneal fat stranding Atherosclerotic calcification is noted in the aorta and iliac arteries. Infrarenal fusiform aneurysmal aortic dilatation with a maximum caliber of 3.3cm The appendix is retrocecal and unremarkable. Pelvis: The urinary bladder is partially full catheterized with gas fluid level inside The prostate is of average size. Bilateral small fatty inguinal hernias with possible bilateral hydroceles The pelvic vasculature is unremarkable. No evidence of pelvic lymphadenopathy. Spine degenerative and spondyolitic changes. No lytic or sclerotic bone lesions. Diffuse subcutaneous edema noted IMPRESSION: 1. Cirrhotic liver 2. Mild splenomegaly 3. Moderate pelvic abdominal free fluid with nonspecific peritoneal fat stranding, possible ascites for clinical and cytological evaluation. 4. The reported "possible enlarged para esophageal and right posterior mediastinal lymph nodes" in the Chest report is clearly enlarged multiple esophageal varices, epigastric and splenorenal collaterals made evident after contrast administration. Indicating signs of portal hypertension. 5. Infrarenal fusiform aneurysmal aortic dilatation with a maximum caliber of 3.3cm. CT angiography is advised 6. The ascending colon, the transverse colon, and the descending colon, show a long segment of diffuse wall thickening with a maximum thickness of 12 mm. Possible colitis, clinical correlation is advised 7. The urinary bladder is partially fully catheterized with gas fluid level inside, possibly post-catheterization gas. 8. Diffuse subcutaneous edema noted. [facility] ER was called at [phone] at 7:57 AM SEPTIC TANK SETTER, 02/01/2024 and Isi Nurse was informed regarding the presence of Important Medical Findings in the report. Electronically Signed by: Laurel Parra MD. (02/01/2024 09:20:35 EDT)
[2024-02-01 09:38] VITALS: O2SAT 96
[2024-02-01] MEDS ORDERED: Lasix 40 MG/4 ML ONE (09:46)
[2024-02-01] MEDS: Lasix 40 MG/4 ML IV ONE (09:49)
[2024-02-01 10:27] VITALS: BP 81/55; PULSE 109
[2024-02-01 20:13] LABS: Nitrite Negative (Negative)
== END 2024-02-01 10:25 | disposition short-term general hospital (02) ==
LOC: ED 03:08
DX: N39.0 Urinary tract infection, site not specified (principal); A41.9 Sepsis, unspecified organism; R41.82 Altered mental status, unspecified; R50.9 Fever, unspecified; F17.200 Nicotine dependence, unspecified, uncomplicated; K76.82 Hepatic encephalopathy; R79.89 Other specified abnormal findings of blood chemistry; K72.90 Hepatic failure, unspecified without coma; Z79.899 Other long term (current) drug therapy
CPT/HCPCS: 0241U; 36000; 36415; 36430; 71045; 71250; 74177; 80053; 81001; 82140; 82274; 83605; 83880; 84145; 85018; 85025; 85610; 86850; 86900; 86901; 86922; 87040; 87077; 87086; 87186; 93005; 96360; 96361; 96365; 96367; 96374; 96375; 99285; P9016; J0696; J1940; A9270-GY; G0328; J3370